=== PATIENT | male | born 1955 | race Caucasian/White ===

== ENCOUNTER 2019-12-10 14:09 | Emergency (ER) | payer BC ==
--- NOTE | 2019-12-10 16:31 | RAD REPORT ---
EXAM DESCRIPTION: CT - Stone Protocol - 12/10/2019 4:08 pm CLINICAL HISTORY: Pain COMPARISON: Abdomen Pelvis W Contrast dated 05/20/2016 TECHNIQUE: Axial 5 mm thick images were obtained without oral or IV contrast. The [id number] span s the entirety of the system including uppermost abdomen and lung bases. All CT scans are performed using dose optimization technique as appropriate and may include automated exposure control or mA/KV adjustment according to patient size. FINDINGS: No hydronephrosis is present and no obstructing ureteral calculi. No suspicious renal mass es. Isodense masses and pyelonephritis are not excluded on a stone protocol CT scan. Left kidney is s urgically absent. No suspicious mass or lymphadenopathy at the left renal surgical site. Urinary blad gabriella is mostly contracted limiting assessment. No significant adrenal finding. Liver shows a pronounced nodular contour consistent with cirrhosis. Left lobe is relatively prominent . A focal liver lesion is not seen on noncontrast imaging. The central hypodense area detailed in 201 6 is not seen on the current examination. No splenomegaly or focal splenic finding. No acute pancreatic process seen. Gallbladder is not dilate d. Wall does appear slightly thickened or edematous. No biliary tree dilatation. Calcification near t he neck of the gallbladder is believed to be outside of the gallbladder and not an acute finding. No gastric dilatation or wall thickening. No dilated large or small bowel loops. Patient does have a 3 centimeter right-sided bladder diverticulum. No mass or bulky lymphadenopathy. Patient has a large supraumbilical ventral hernia. The neck is 6 cm . Hernia contains several loops of small bowel. Hernia also contains a moderately large amount of asc ites. This increases the transverse diameter of the herniated contents to 30 cm. Several additional f at only supraumbilical ventral hernias are present superior to the dominant hernia. Patient has a rig ht inguinal hernia containing ascites that extends into the scrotum. Intraperitoneal amount of ascite s is minimal. No free air or pneumatosis. No acute bone finding. Arterial tree calcifications are present. IMPRESSION: Status post left nephrectomy. Right kidney shows no hydronephrosis, obstructing calculus or acute finding. Isodense masses and pyelonephritis are not excluded on stone protocol technique.Urinary bladder is co ntracted limiting assessment. Patient has a large supraumbilical ventral hernia significantly enlarged from 2016. Neck is 6 cm. Her jennifer contains a large amount of ascites which increases the transverse diameter to 30 cm. Herniated sm all bowel loops show no acute finding. Right inguinal hernia containing ascites. Cirrhotic liver. Multiple varices are seen in the upper abdomen. No focal liver lesion is seen.
--- NOTE | 2019-12-10 16:57 | ER ---
Nurse's Notes [facility] Name: Naif Loza Age: 63 yrs Sex: Male : 1955 Arrival Date: 12/10/2019 Time: 14:11 Bed 23 Private MD: Diagnosis: Abdominal and pelvic pain;Ventral hernia without obstruction or gangrene;Ascites Presentation: 12/10 14:33 Presenting complaint: Patient states: "I have hernias in my stomach and on my right, aj1 last night they started with steady pain, and I have this cough that's probably aggregated it" Denies N/V. Reports diarrhea. Denies fever. Transition of care: patient was not received from another setting of care. Onset of symptoms was November 2019. Risk Assessment: Do you want to hurt yourself or someone else? Patient reports no desire to harm self or others. Initial Sepsis Screen: Does the patient meet any 2 criteria? No. Patient's initial sepsis screen is negative. Does the patient have a suspected source of infection? Yes: Acute abdominal pain. Care prior to arrival: None. 14:33 Method Of Arrival: Ambulatory aj1 14:33 Acuity: VENKATESH 3 aj1 Triage Assessment: 14:35 General: Appears in no apparent distress. comfortable, Behavior is calm, cooperative, aj1 appropriate for age. Pain: Complains of pain in abdomen Pain currently is 5 out of 10 on a pain scale. at worst was 10 out of 10 on a pain scale. Neuro: Level of Consciousness is awake, alert, obeys commands. Cardiovascular: Patient's skin is warm and dry. Respiratory: Airway is patent Respiratory effort is even, unlabored, Respiratory pattern is regular, symmetrical. GI: Abdomen is distended, Reports diarrhea, Patient currently denies nausea, vomiting. Historical: - Allergies: 14:35 No Known Allergies; aj1 - Home Meds: 14:35 None [Active]; aj1 - PMHx: 14:35 Anxiety; Hernia; aj1 - PSHx: 14:35 None; aj1 - Immunization history:: Flu vaccine is not up to date. - Coronavirus screen:: The patient has NOT traveled to [place] in the past 14 days. - Social history:: Smoking status: Patient/guardian denies using tobacco. - Ebola Screening: : Patient denies travel to an Ebola-affected area in the 21 days before illness onset. Screenin:00 Abuse screen: Denies threats or abuse. Nutritional screening: No deficits noted. vc Tuberculosis screening: No symptoms or risk factors identified. Fall Risk None identified. Assessment: 16:40 General: Appears in no apparent distress. uncomfortable, Behavior is calm, cooperative, vc appropriate for age. Pain: Complains of pain in abdomen. Neuro: Level of Consciousness is awake, alert, obeys commands. Cardiovascular: Patient's skin is warm and dry. GI: Abdomen is obese, noted to have ascites. : No signs and/or symptoms were reported regarding the genitourinary system. EENT: No deficits noted. Derm: Skin temperature is warm. Musculoskeletal: Circulation, motion, and sensation intact. Range of motion: intact in all extremities. 17:00 Reassessment: Patient and/or family updated on plan of care and expected duration. Pain vc level reassessed. Patient is alert, oriented x 3, equal unlabored respirations, skin warm/dry/pink. Patient denies pain at this time. 17:25 GI: Bowel sounds present X 4 quads. Abd is soft Abdomen is tender to palpation X 4 vc quads. Vital Signs: 14:35 BP 149 / 79; Pulse 79; Resp 18; Temp 98.1; Pulse Ox 96% on R/A; Weight 86.18 kg (R); aj1 Height 5 ft. 8 in. (172.72 cm) (R); Pain 5/10; 17:00 BP 145 / 78; Pulse 80; Resp 20; Pulse Ox 97% on R/A; vc 14:35 Body Mass Index 28.89 (86.18 kg, 172.72 cm) aj1 ED Course: 14:11 Patient arrived in ED. as 14:35 Triage completed. aj1 14:35 Arm band placed on Patient placed in waiting room, Patient notified of wait time. aj1 15:34 Collette Wu FNP-C is [facility]. snw 15:35 Brian Tierney MD is Attending Physician. snw 16:00 CT Stone Protocol Sent. vc 16:37 Deepika Rangel, GONZALO is Primary Nurse. vc 17:25 Patient has correct armband on for positive identification. Bed in low position. Call vc light in reach. Side rails up X 1. 17:25 No provider procedures requiring assistance completed. Patient did not have IV access vc during this emergency room visit. Administered Medications: 17:16 Drug: Imbler 5 mg-325 mg 1 tabs Route: PO; vc 18:16 Follow up: Response: No adverse reaction; Pain is decreased vc Outcome: 16:55 Discharge ordered by MD. yuen 17:25 Discharged to home ambulatory, with family. vc 17:25 Condition: good 17:25 Discharge instructions given to patient, family, Instructed on discharge instructions, follow up and referral plans. medication usage, Demonstrated understanding of instructions, follow-up care, medications, Prescriptions given X 1. 17:28 Patient left the ED. vc Signatures: Florence Chun RN RN aj1 Collette Wu, ANIMAL PATHOLOGIST-C ANIMAL PATHOLOGIST-Csnw Lennie Samuels Vanessa, RN RN vc Corrections: (The following items were deleted from the chart) 22:06 22:05 To radiology for Stone Protocol+CT.RAD.BRZ. vc vc
--- NOTE | 2019-12-10 16:57 | EDPHYS ---
Physician Documentation [facility] Name: Naif Loza Age: 63 yrs Sex: Male : 1955 Arrival Date: 12/10/2019 Time: 14:11 Bed 23 Private MD: ED Physician Brian Tierney HPI: 12/10 17:23 This 63 yrs old Male presents to ER via Ambulatory with complaints of snw Abdominal Pain. 17:23 The patient presents with abdominal pain abdominal distention. Onset: The snw symptoms/episode began/occurred gradually, at an unknown time, and became persistent. The symptoms do not radiate. Associated signs and symptoms: Pertinent positives: known large ventral and right inguinal hernias. The symptoms are described as achy. Severity of pain: At its worst the pain was moderate. The patient has experienced similar episodes in the past. The patient has not recently seen a physician. Pt aware he needs surgery, has not had funds to have it done. Historical: - Allergies: 14:35 No Known Allergies; aj1 - Home Meds: 14:35 None [Active]; aj1 - PMHx: 14:35 Anxiety; Hernia; aj1 - PSHx: 14:35 None; aj1 - Immunization history:: Flu vaccine is not up to date. - Coronavirus screen:: The patient has NOT traveled to [place] in the past 14 days. - Social history:: Smoking status: Patient/guardian denies using tobacco. - Ebola Screening: : Patient denies travel to an Ebola-affected area in the 21 days before illness onset. ROS: 17:20 Constitutional: Negative for fever, chills, and weight loss, Eyes: Negative for injury, snw pain, redness, and discharge, ENT: Negative for injury, pain, and discharge, Neck: Negative for injury, pain, and swelling, Cardiovascular: Negative for chest pain, palpitations, and edema, Respiratory: Negative for shortness of breath, cough, wheezing, and pleuritic chest pain, Back: Negative for injury and pain, : Negative for injury, bleeding, discharge, and swelling, MS/Extremity: Negative for injury and deformity, Skin: Negative for injury, rash, and discoloration, Neuro: Negative for headache, weakness, numbness, tingling, and seizure. 17:20 Abdomen/GI: Positive for abdominal pain, abdominal distension, Negative for nausea and vomiting, diarrhea, black/tarry stool, bowel incontinence. Exam: 17:20 Constitutional: This is a well developed, well nourished patient who is awake, alert, snw and in no acute distress. Head/Face: Normocephalic, atraumatic. Eyes: Pupils equal round and reactive to light, extra-ocular motions intact. Lids and lashes normal. Conjunctiva and sclera are non-icteric and not injected. Cornea within normal limits. Periorbital areas with no swelling, redness, or edema. ENT: Nares patent. No nasal discharge, no septal abnormalities noted. Tympanic membranes are normal and external auditory canals are clear. Oropharynx with no redness, swelling, or masses, exudates, or evidence of obstruction, uvula midline. Mucous membranes moist. Neck: Trachea midline, no thyromegaly or masses palpated, and no cervical lymphadenopathy. Supple, full range of motion without nuchal rigidity, or vertebral point tenderness. No Meningismus. Chest/axilla: Normal chest wall appearance and motion. Nontender with no deformity. No lesions are appreciated. Cardiovascular: Regular rate and rhythm with a normal S1 and S2. No gallops, murmurs, or rubs. Normal PMI, no JVD. No pulse deficits. Respiratory: Lungs have equal breath sounds bilaterally, clear to auscultation and percussion. No rales, rhonchi or wheezes noted. No increased work of breathing, no retractions or nasal flaring. 17:20 Back: No spinal tenderness. No costovertebral tenderness. Full range of motion. Skin: Warm, dry with normal turgor. Normal color with no rashes, no lesions, and no evidence of cellulitis. MS/ Extremity: Pulses equal, no cyanosis. Neurovascular intact. Full, normal range of motion. Neuro: Awake and alert, GCS 15, oriented to person, place, time, and situation. Cranial nerves II-XII grossly intact. Motor strength 5/5 in all extremities. Sensory grossly intact. Cerebellar exam normal. Normal gait. Psych: Awake, alert, with orientation to person, place and time. Behavior, mood, and affect are within normal limits. 17:20 Abdomen/GI: Inspection: very large ventral hernia, soft and pliable abdomen with obvious distension, bowel sounds normal, Bowel sounds: normal, Palpation: abdomen is soft and non-tender. Vital Signs: 14:35 BP 149 / 79; Pulse 79; Resp 18; Temp 98.1; Pulse Ox 96% on R/A; Weight 86.18 kg (R); aj1 Height 5 ft. 8 in. (172.72 cm) (R); Pain 5/10; 17:00 BP 145 / 78; Pulse 80; Resp 20; Pulse Ox 97% on R/A; vc 14:35 Body Mass Index 28.89 (86.18 kg, 172.72 cm) aj1 MDM: 16:18 Patient medically screened. snw 17:22 Data reviewed: vital signs, nurses notes. Data interpreted: Pulse oximetry: on room air snw is 96 %. Interpretation: acceptable. Counseling: I had a detailed discussion with the patient and/or guardian regarding: the historical points, exam findings, and any diagnostic results supporting the discharge/admit diagnosis, radiology results, the need for outpatient follow up, to return to the emergency department if symptoms worsen or persist or if there are any questions or concerns that arise at home. Special discussion: Based on the patient's Hx, exam, and Dx evaluation, there is no indication for emergent surgery or inpatient Tx. It is understood by the patient/guardian that if the Sx's persist or worsen they need to return immediately for re-evaluation. Based on the history and exam findings, there is no indication for further emergent testing or inpatient evaluation. I discussed with the patient/guardian the need to see the technology training associate for further evaluation of the symptoms. I discussed with the patient/guardian the need to see the general surgeon for further evaluation of the symptoms. I discussed with the patient/guardian the need to see the primary care provider for further evaluation of the symptoms. ED course: Pt was an alcoholic, states he only drinks a few beers on the weekends now. CT evidence of cirrhosis, + ascites to abdomen and scrotum. 12/10 15:18 Order name: CT Stone Protocol aj1 Administered Medications: 17:16 Drug: [place] 5 mg-325 mg 1 tabs Route: PO; vc 18:16 Follow up: Response: No adverse reaction; Pain is decreased vc Disposition: 17:54 Co-signature as Attending Physician, Brian Tierney MD. rn Disposition: 12/10/19 16:55 Discharged to Home. Impression: Abdominal and pelvic pain, Ventral hernia without obstruction or gangrene, Ascites. - Condition is Stable. - Discharge Instructions: Abdominal Pain, Adult, Hernia, Adult, Ventral Hernia. - Prescriptions for Bentyl 20 mg Oral Tablet - take 1 tablet by ORAL route every 6 hours As needed; 20 tablet. - Medication Reconciliation Form, Thank You Letter, Antibiotic Education, Prescription Opioid Use form. - Follow up: Emergency Department; When: As needed; Reason: Worsening of condition. Follow up: Private Physician; When: 2 - 3 days; Reason: Recheck today's complaints, Continuance of care, Re-evaluation by your physician. - Notes: Continue use of abdominal binder Signatures: Dispatcher [employer] EDMS Florence Chun RN RN aj1 Collette Wu, GILLIAN-C EXTRUSION BENDER-Csnw Brian Tierney MD MD rn Calcote, Vanessa, RN RN vc Corrections: (The following items were deleted from the chart) 17:28 16:55 12/10/2019 16:55 Discharged to Home. Impression: Abdominal and pelvic pain; vc Ventral hernia without obstruction or gangrene; Ascites. Condition is Stable. Forms are Medication Reconciliation Form, Thank You Letter, Antibiotic Education, Prescription Opioid Use. Follow up: Emergency Department; When: As needed; Reason: Worsening of condition. Follow up: Private Physician; When: 2 - 3 days; Reason: Recheck today's complaints, Continuance of care, Re-evaluation by your physician. snw
[2019-12-10] MEDS ORDERED: HYDROCODONE/APAP 5/325 MG TAB ONE (17:07)
[2019-12-10 18:05] VITALS: BP 149/79; TEMP 98.1; O2SAT 96
== END 2019-12-10 17:28 | disposition home or self-care (01) ==
LOC: ER 14:09
DX: R10.2 Pelvic and perineal pain (principal); K43.9 Ventral hernia without obstruction or gangrene; R18.8 Other ascites
CPT/HCPCS: 74176; 76377; 99283

== ENCOUNTER 2020-09-03 13:07 | Emergency (ER) | payer BC ==
[2020-09-03] MEDS ORDERED: MORPHINE 4 MG/ML SYR ONE (15:33)
[2020-09-03] MEDS ORDERED: ONDANSETRON 4 MG (ODT) TAB ONE (15:34)
[2020-09-03 16:21] LABS: Urine Bacteria <20 /HPF (NONE SEEN); Urine Culture Reflex Order REFLEXED; Urine Mucus 2+ /HPF (NONE SEEN); Urine RBC <5 /HPF (NONE SEEN)
[2020-09-03 16:22] LABS: Urine Blood NEGATIVE (NEG); Urine Glucose NEGATIVE (NEG); Urine Protein TRACE (NEG); Urine Specific Gravity 1.025 (1.005-1.030)
--- NOTE | 2020-09-03 16:29 | ER ---
Nurse's Notes [facility] Name: Naif Loza Age: 64 yrs Sex: Male : 1955 Arrival Date: 09/03/2020 Time: 13:17 Bed 8 Private MD: Diagnosis: Inguinal hernia;Ventral hernia without obstruction or gangrene;Urinary tract infection, site not specified Presentation: 09/03 13:25 Coronavirus screen: Client denies travel out of the [place] in the last 14 days. At this ll1 time, the client does not indicate any symptoms associated with coronavirus-19. Ebola Screen: Patient denies travel to an Ebola-affected area in the 21 days before illness onset. Initial Sepsis Screen: Does the patient meet any 2 criteria? No. Patient's initial sepsis screen is negative. Does the patient have a suspected source of infection? Yes: Acute abdominal pain. Risk Assessment: Do you want to hurt yourself or someone else? Patient reports no desire to harm self or others. Onset of symptoms was August 02, 2020. 13:25 Method Of Arrival: Ambulatory ll1 13:25 Acuity: VENKATESH 2 ll1 13:26 Chief complaint: Patient states: Testicular swelling for 1 month. Can usually get the ll1 swelling down with rest and elevation, not working this time. Abdominal hernias have gotten more painful the past month. Noticed bruising to both sides of abdomen recently. Historical: - Allergies: 13:25 No Known Allergies; ll1 - PMHx: 13:25 Hernia; Anxiety; ll1 - PSHx: 13:25 kidney CA with removal; Hernia repair; ll1 - Immunization history:: Flu vaccine is not up to date. - Social history:: Smoking status: Patient denies any tobacco usage or history of. Screenin:30 Abuse screen: Denies threats or abuse. Nutritional screening: No deficits noted. vg1 Tuberculosis screening: No symptoms or risk factors identified. Fall Risk No fall in past 12 months (0 pts). No secondary diagnosis (0 pts). No IV (0 pts). Ambulatory Aid- None/Bed Rest/Nurse Assist (0 pts). Gait- Normal/Bed Rest/Wheelchair (0 pts) Mental Status- Oriented to own ability (0 pts). Total Casiano Fall Scale indicates No Risk (0-24 pts). Assessment: 15:20 General: Appears in no apparent distress. Behavior is calm, cooperative. Pain: vg1 Complains of pain in Right testicle Pain currently is 10 out of 10 on a pain scale. Quality of pain is described as tender, Pain began 'about a week ago'. Is continuous. Neuro: Level of Consciousness is awake, alert, obeys commands, Oriented to person, place, time, situation. Cardiovascular: Patient's skin is warm and dry. Respiratory: Airway is patent Respiratory effort is even, unlabored, Respiratory pattern is regular, symmetrical. GI: Patient currently denies diarrhea, nausea, vomiting, Patient has multiple abd hernias. Pt stated "I had Left Kidney and part of colon removed in 2006". : Reports "slight pain and burning with urination". EENT: No signs and/or symptoms were reported regarding the EENT system. Derm: Skin is pink, warm \\T\\ dry. Musculoskeletal: Range of motion: intact in all extremities. 16:20 Reassessment: Patient appears in no apparent distress at this time. Patient and/or vg1 family updated on plan of care and expected duration. Pain level reassessed. Patient is alert, oriented x 3, equal unlabored respirations, skin warm/dry/pink. Vital Signs: 13:25 BP 138 / 72; Pulse 85; Resp 19; Temp 98.1; Pulse Ox 95% on R/A; Weight 86.18 kg; Height ll1 5 ft. 9 in. (175.26 cm); Pain 10/10; 15:30 BP 127 / 79; Pulse 83; Resp 16; Pulse Ox 100% ; sv 16:00 BP 141 / 76; Pulse 76; Resp 14; Pulse Ox 96% on R/A; vg1 16:16 Pain 4/10; vg1 16:30 BP 142 / 76; Pulse 80; Resp 14; Pulse Ox 98% on R/A; vg1 13:25 Body Mass Index 28.06 (86.18 kg, 175.26 cm) ll1 ED Course: 13:17 Patient arrived in ED. ds1 13:24 Arm band placed on. ll1 13:26 Triage completed. ll1 14:41 Kieran Pacheco NP is PHCP. pm1 14:41 Brian Tierney MD is Attending Physician. pm1 15:11 Ingrid Reyna, RN is Primary Nurse. vg1 15:20 Patient has correct armband on for positive identification. Placed in gown. Bed in low vg1 position. Call light in reach. Side rails up X 1. Pulse ox on. NIBP on. 16:10 Urine collected: clean catch specimen, marietta colored. vg1 16:46 No provider procedures requiring assistance completed. Patient did not have IV access vg1 during this emergency room visit. Administered Medications: 15:30 Drug: morphine 4 mg {Note: RASS 0.} Route: IM; Site: right deltoid; vg1 16:16 Follow up: Pain 4/10 Adult; Response: No adverse reaction; Pain is decreased; RASS: vg1 Alert and Calm (0) 15:30 Drug: Ondansetron (Zofran) 4 mg Route: PO; vg1 16:16 Follow up: Response: No adverse reaction vg1 Outcome: 16:28 Discharge ordered by MD. pm1 16:47 Discharged to home ambulatory, with family. vg1 16:47 Condition: stable 16:47 Discharge instructions given to patient, Instructed on discharge instructions, follow up and referral plans. medication usage, Demonstrated understanding of instructions, Prescriptions given X 2. 16:47 Patient left the ED. vg1 Signatures: Judith Abernathy RN RN Sol Mcneal ds1 Kieran Pacheco, YEE TECHNICAL PLANNER pm1 Ingrid Reyna RN RN vg1 Rafi Kinsey RN RN ll1 Corrections: (The following items were deleted from the chart) 16:04 15:20 GI: Patient currently denies diarrhea, nausea, vomiting, vg1 vg1
--- NOTE | 2020-09-03 16:29 | EDPHYS ---
Physician Documentation [facility] Name: Naif Loza Age: 64 yrs Sex: Male : 1955 Arrival Date: 09/03/2020 Time: 13:17 Bed 8 Private MD: ED Physician Brian Tierney HPI: 09/03 15:17 This 64 yrs old Male presents to ER via Ambulatory with complaints of pm1 Testicular Swelling. 15:17 The patient presents with swelling, of the right inguinal area. pm1 15:17 Onset: The symptoms/episode began/occurred 1 month(s) ago. Modifying factors: The pm1 symptoms are alleviated by nothing, the symptoms are aggravated by nothing. Associated signs and symptoms: Pertinent positives: dysuria, Pertinent negatives: constipation, diarrhea, fever, nausea, vomiting. Severity of symptoms: in the emergency department the symptoms are actually worse. The patient has experienced similar episodes in the past, chronically. The patient has been recently seen by a physician: GI and has appointment with internal medicine in 1 week. Historical: - Allergies: 13:25 No Known Allergies; ll1 - PMHx: 13:25 Hernia; Anxiety; ll1 - PSHx: 13:25 kidney CA with removal; Hernia repair; ll1 - Immunization history:: Flu vaccine is not up to date. - Social history:: Smoking status: Patient denies any tobacco usage or history of. ROS: 15:17 Constitutional: Negative for fever, chills, and weight loss, Cardiovascular: Negative pm1 for chest pain, palpitations, and edema, Respiratory: Negative for shortness of breath, cough, wheezing, and pleuritic chest pain. 15:17 Back: Negative for injury and pain. 15:17 MS/Extremity: Negative for injury and deformity, Skin: Negative for injury, rash, and discoloration, Neuro: Negative for headache, weakness, numbness, tingling, and seizure. 15:17 Abdomen/GI: Negative for abdominal pain, nausea, vomiting, and diarrhea, constipation. 15:17 : Positive for burning with urination, right inguinal testicular swelling, Negative for flank pain. Exam: 15:17 Constitutional: This is a well developed, well nourished patient who is awake, alert, pm1 and in no acute distress. Head/Face: Normocephalic, atraumatic. 15:17 Back: No spinal tenderness. No costovertebral tenderness. Full range of motion. Skin: Warm, dry with normal turgor. Normal color with no rashes, no lesions, and no evidence of cellulitis. MS/ Extremity: Pulses equal, no cyanosis. Neurovascular intact. Full, normal range of motion. 15:17 Cardiovascular: Exam negative for acute changes, Rate: normal, Rhythm: regular, Pulses: no pulse deficits are appreciated. 15:17 Respiratory: Exam negative for acute changes, respiratory distress, shortness of breath. 15:17 Abdomen/GI: Inspection: obese Hernia: Large right inguinal hernia, 2 large ventral hernia. 15:17 Neuro: Exam negative for acute changes, Orientation: is normal, Motor: is normal, Sensation: is normal, no obvious gross deficits. Vital Signs: 13:25 BP 138 / 72; Pulse 85; Resp 19; Temp 98.1; Pulse Ox 95% on R/A; Weight 86.18 kg; Height ll1 5 ft. 9 in. (175.26 cm); Pain 10/10; 15:30 BP 127 / 79; Pulse 83; Resp 16; Pulse Ox 100% ; sv 16:00 BP 141 / 76; Pulse 76; Resp 14; Pulse Ox 96% on R/A; vg1 16:16 Pain 4/10; vg1 16:30 BP 142 / 76; Pulse 80; Resp 14; Pulse Ox 98% on R/A; vg1 13:25 Body Mass Index 28.06 (86.18 kg, 175.26 cm) ll1 MDM: 14:42 Patient medically screened. pm1 15:17 Data reviewed: vital signs. Data interpreted: Pulse oximetry: on room air is 95 %. pm1 Interpretation: normal. 15:17 ED course: Patient has had large hernias to abdomen and scrotal area for years. pm1 Discussed with the patient the need to follow up with the surgeon that is planning to repair his hernias. The surgeon wanted clearance from GI prior to surgery due to his liver cirrhosis. He has had an EGD recently and has appointment with Internal Medicine on Thursday. He came to the ER because he is having problems dealing with the pain. 15:17 ED course: Explained that imaging in the ER will not change disposition for follow up pm1 with the surgeon since the hernias are so large that the defect are large also and no incarceration is present. Patient and daughter understand that he needs to follow up for clearance to get his hernia surgery. I will address his pain here and give hi a prescription for pain medication. 16:28 Counseling: I had a detailed discussion with the patient and/or guardian regarding: the pm1 historical points, exam findings, and any diagnostic results supporting the discharge/admit diagnosis, lab results, the need for outpatient follow up, a general surgeon, to return to the emergency department if symptoms worsen or persist or if there are any questions or concerns that arise at home. 09/03 15:06 Order name: Urine Microscopic Only; Complete Time: 16:27 pm1 09/03 16:13 Order name: Urine Dipstick--Ancillary (enter results); Complete Time: 16:27 bd 09/03 15:06 Order name: Urine Dipstick-Ancillary (obtain specimen); Complete Time: 16:12 pm1 09/03 16:23 Order name: Urine Culture EDMS Administered Medications: 15:30 Drug: morphine 4 mg {Note: RASS 0.} Route: IM; Site: right deltoid; vg1 16:16 Follow up: Pain 4/10 Adult; Response: No adverse reaction; Pain is decreased; RASS: vg1 Alert and Calm (0) 15:30 Drug: Ondansetron (Zofran) 4 mg Route: PO; vg1 16:16 Follow up: Response: No adverse reaction vg1 Disposition: 18:59 Co-signature as Attending Physician, Brian Tierney MD. rn Disposition: 09/03/20 16:28 Discharged to Home. Impression: Inguinal hernia, Ventral hernia without obstruction or gangrene, Urinary tract infection, site not specified. - Condition is Stable. - Discharge Instructions: Urinary Tract Infection, Adult, Inguinal Hernia, Adult, Ventral Hernia. - Prescriptions for Tramadol 50 mg Oral Tablet - take 1 tablet by ORAL route every 8 hours as needed; 12 tablet. Bactrim DS 800- 160 mg Oral Tablet - take 1 tablet by ORAL route every 12 hours for 10 days; 20 tablet. - Medication Reconciliation Form, Thank You Letter, Antibiotic Education, Prescription Opioid Use form. - Work release form (09/03/20 16:50). vg1 - Follow up: Emergency Department; When: As needed; Reason: Worsening of condition. Follow up: Private Physician; When: 2 - 3 days; Reason: Recheck today's complaints, Continuance of care, Re-evaluation by your physician. - Problem is new. - Symptoms have improved. Signatures: Dispatcher [employer] EDMS Brian Tierney MD MD rn Marinas, Patrick MEDICAL PARASITOLOGIST MEDICAL PARASITOLOGIST pm1 Ingrid Reyna RN RN vg1 Rafi Kinsey RN RN ll1 Corrections: (The following items were deleted from the chart) 15:18 15:17 Counseling: I had a detailed discussion with the patient and/or guardian pm1 regarding: pm1 16:47 16:28 09/03/2020 16:28 Discharged to Home. Impression: Inguinal hernia; Ventral hernia vg1 without obstruction or gangrene; Urinary tract infection, site not specified. Condition is Stable. Discharge Instructions: Inguinal Hernia, Adult, Ventral Hernia. Prescriptions for Tramadol 50 mg Oral Tablet - take 1 tablet by ORAL route every 8 hours as needed; 12 tablet. and Forms are Medication Reconciliation Form, Thank You Letter, Antibiotic Education, Prescription Opioid Use. Follow up: Emergency Department; When: As needed; Reason: Worsening of condition. Follow up: Private Physician; When: 2 - 3 days; Reason: Recheck today's complaints, Continuance of care, Re-evaluation by your physician. Problem is new. Symptoms have improved. pm1 17:49 15:17 ED course: Patient has had large hernias to abdomen and scrotal area for years. pm1 Discussed with the patient the need to follow up with the surgeon that is planning to repair his hernias. The surgeon wanted clearance from GI prior to surgery due to his liver cirrhosis. He has had an EGD recently and has appointment with GI on Thursday. He came to the ER because he is having problems dealing with the pain. pm1
[2020-09-03 20:53] VITALS: TEMP 98.1
[2020-09-03 20:59] VITALS: BP 142/76; O2SAT 98
== END 2020-09-03 16:47 | disposition home or self-care (01) ==
LOC: ER 13:07
DX: N39.0 Urinary tract infection, site not specified (principal); K40.90 Unilateral inguinal hernia, without obstruction or gangrene, not specified as recurrent; K43.9 Ventral hernia without obstruction or gangrene; Z85.528 Personal history of other malignant neoplasm of kidney
CPT/HCPCS: 81003; 81015; 87086; 87088; 96372; 99284

== ENCOUNTER 2021-04-03 09:06 | Inpatient (IN) | payer BC, SELFPAY ==
--- OUTSIDE RECORDS SUMMARY | 2021-04-03 09:08 | XMS REPORT | Continuity of Care Document ---
:1955 Author Organization [facility] t Address [address] [place] [address] Care Team Providers Name Role Phone Unavailable Unavailable Unavailable Problems This patient has no known problems. Allergies, Adverse Reactions, Alerts This patient has no known allergies or adverse reactions. Medications This patient has no known medications. Procedures This patient has no known procedures. Encounters Start End Encounter Admission Attending Care Care Encounter Source Date/Time Date/Time Type Type Clinicians Facility Department ID 2021-01-07 2021-01-07 Outpatient [id number] 09:00:00 09:00:00 2020-10-22 2020-10-22 Outpatient [id number] [facility] 12:51:00 12:51:00 2020-10-15 2020-10-15 Outpatient [id number] [facility] 10:51:00 10:51:00 2020-09-24 2020-09-24 Emergency E [id number] [facility] 15:26:00 15:26:00 Results This patient has no known results.
[2021-04-03 09:50] LABS: Absolute Lymphocytes (CBC) 1.3 K/uL (0.7-4.9); Basophils % 0.3 % (0-1.3); Lymphocytes % 11.9 % (15.3-44.8); MPV 7.5 fL (7.6-11.3); RBC Red Blood Cell Count 3.93 M/uL (4.33-5.43)
[2021-04-03] MEDS ORDERED: ONDANSETRON 4 MG/2 ML VIAL ONE (10:06)
[2021-04-03] MEDS ORDERED: MORPHINE 4 MG/ML SYR ONE (10:06)
[2021-04-03 10:14] LABS: Albumin 2.8 g/dL (3.4-5.0); Bilirubin Direct 0.7 mg/dL (0-0.2); Bilirubin Total 1.4 mg/dL (0.2-1.0); Potassium 4.5 mmol/L (3.5-5.1); Protein, Total 7.2 g/dL (6.4-8.2)
--- NOTE | 2021-04-03 10:51 | RAD REPORT ---
EXAM DESCRIPTION: CT - Abdomen Pelvis W Contrast - 04/03/2021 10:28 am CLINICAL HISTORY: Abdominal pain COMPARISON: 2019 TECHNIQUE: Computed axial tomography of the abdomen pelvis was obtained. 75 cc Isovue-300 was admini stered intravenously. Oral contrast was not requested which limits evaluation of bowel. All CT scans are performed using dose optimization technique as appropriate and may include automated exposure control or mA/KV adjustment according to patient size. FINDINGS: Cirrhotic liver. It contains low density areas with retraction of the hepatic capsule. Por maria luisa vein is patent. Soft gel and abdominal varices. Mild splenomegaly. The pancreas and adrenals are unremarkable Left nephrectomy Right kidney unremarkable. No evidence of diverticulitis. Multiple ventral hernias. The largest contains bowel and has a neck 4.5 centimeters. Jejunum and port ion of the ileum are mildly dilated. More distal ileum is decompressed. A small to moderate amount of ascites within the abdomen and pelvis. A large amount of ascites extend s into a right ventral hernia Bladder diverticulum. IMPRESSION: Cirrhosis. Low-density areas within the liver with retraction of the capsule probably fi brosis. Neoplasm although possible is probably less likely. MRI recommended. Small bowel obstruction. The site of obstruction maybe the ventral hernia. Large ventral hernia containing bowel Right ventral hernia containing a large amount of ascites
[2021-04-03] MEDS ORDERED: ACETAMINOPHEN 500 MG TAB PO PRN (13:32)
[2021-04-03] MEDS ORDERED: ONDANSETRON 4 MG/2 ML VIAL IV PRN (13:32)
[2021-04-03] MEDS ORDERED: Levofloxacin500mg IV 500 MG/100 ML BAG IV SCH (13:32)
--- NOTE | 2021-04-03 14:37 | RAD REPORT ---
EXAM DESCRIPTION: RAD - Abdomen Acute Series - 04/03/2021 2:28 pm CLINICAL HISTORY: SBO FINDINGS: Multiple mildly prominent small bowel loops throughout the abdomen appear unchanged since comparative study compatible with a mild to moderate mechanical obstruction. No pneumoperitoneum seen . IMPRESSION: Stable findings of SBO since CT examination earlier same date.
--- NOTE | 2021-04-03 15:53 | ER ---
Nurse's Notes [facility] Name: Naif Loza Age: 65 yrs Sex: Male : 1955 Arrival Date: 04/03/2021 Time: 09:08 Bed 14 Private MD: Diagnosis: Small Bowel Obstruction, Abdominal Pain, Ascites, Cirrhosis Presentation: 04/03 09:16 Chief complaint: Patient states: abd pain since Thursday , has hx of cirrhosis and hernia iw , also has been vomiting. Coronavirus screen: Client presents with at least one sign or symptom that may indicate coronavirus-19. Ebola Screen: Patient negative for fever greater than or equal to 101.5 degrees Fahrenheit, and additional compatible Ebola Virus Disease symptoms Patient denies exposure to infectious person. Patient denies travel to an Ebola-affected area in the 21 days before illness onset. No symptoms or risks identified at this time. Initial Sepsis Screen: Does the patient meet any 2 criteria? No. Patient's initial sepsis screen is negative. Does the patient have a suspected source of infection? No. Patient's initial sepsis screen is negative. Risk Assessment: Do you want to hurt yourself or someone else? Patient reports no desire to harm self or others. Onset of symptoms was March 31, 2021. 09:16 Method Of Arrival: Ambulatory iw 09:16 Acuity: VENKATESH 3 iw Historical: - Allergies: 09:19 No Known Allergies; iw - Home Meds: :19 lactulose 10 gram/15 mL Oral soln 15 mL twice a day [Active]; trazodone 100 mg Oral tab iw nightly [Active]; spironolactone 100 mg Oral tab 1 tab once daily [Active]; - PMHx: 09:19 Anxiety; Hernia; Cirrhosis; iw - PSHx: 09:19 kidney CA with removal; Hernia repair; iw - Immunization history:: Client reports receiving the 2nd dose of the Covid vaccine. - Social history:: Smoking status: Patient/guardian denies using tobacco, but has a distant history of tobacco abuse. Screenin:21 Abuse screen: Denies threats or abuse. Nutritional screening: No deficits noted. tw2 Tuberculosis screening: No symptoms or risk factors identified. Fall Risk None identified. Assessment: 09:21 General: Appears in no apparent distress. well groomed, Behavior is calm, cooperative, tw2 appropriate for age. Pain: Complains of pain in abdomen. Neuro: Level of Consciousness is awake, alert, obeys commands, Oriented to person, place, time, situation. Cardiovascular: Capillary refill < 3 seconds. Respiratory: Airway is patent Respiratory effort is even, unlabored, Respiratory pattern is regular, symmetrical. GI: Abdomen is round distended, Bowel sounds present X 4 quads. Mass noted in right upper quadrant and left upper quadrant. GI: Reports lower abdominal pain, upper abdominal pain, nausea. : No signs and/or symptoms were reported regarding the genitourinary system. EENT: No signs and/or symptoms were reported regarding the EENT system. Derm: No signs and/or symptoms reported regarding the dermatologic system. Musculoskeletal: Range of motion: intact in all extremities. 10:20 Reassessment: Patient appears in no apparent distress at this time. No changes from tw2 previously documented assessment. Patient and/or family updated on plan of care and expected duration. Pain level reassessed. Patient is alert, oriented x 3, equal unlabored respirations, skin warm/dry/pink. 11:15 Reassessment: Patient appears in no apparent distress at this time. No changes from tw2 previously documented assessment. Patient and/or family updated on plan of care and expected duration. Pain level reassessed. Patient is alert, oriented x 3, equal unlabored respirations, skin warm/dry/pink. 12:07 Reassessment: Patient appears in no apparent distress at this time. No changes from tw2 previously documented assessment. Patient and/or family updated on plan of care and expected duration. Pain level reassessed. Patient is alert, oriented x 3, equal unlabored respirations, skin warm/dry/pink. 13:10 Reassessment: Patient appears in no apparent distress at this time. No changes from tw2 previously documented assessment. Patient and/or family updated on plan of care and expected duration. Pain level reassessed. Patient is alert, oriented x 3, equal unlabored respirations, skin warm/dry/pink. 14:35 Reassessment: pt back from imaging at this time, nad, pt still "unclear if they are tw2 keeping me or if i go back to the other doctor in [place]", provider Dr. Davis notified that pt and pts stepmother need clarification on the plan as to admission. 15:40 Reassessment: Patient appears in no apparent distress at this time. No changes from tw2 previously documented assessment. Patient and/or family updated on plan of care and expected duration. Pain level reassessed. Patient is alert, oriented x 3, equal unlabored respirations, skin warm/dry/pink. Vital Signs: 09:16 BP 125 / 66; Pulse 92; Resp 18; Temp 98.6; Pulse Ox 95% on R/A; Weight 86.18 kg; Height iw 5 ft. 8 in. (172.72 cm); Pain 10/10; 10:18 BP 109 / 61; Pulse 78; Resp 17; Pulse Ox 95% on R/A; tw2 11:15 BP 113 / 59; Pulse 81; Resp 17; Pulse Ox 95% on R/A; tw2 12:07 BP 110 / 64; Pulse 78; Resp 17; Pulse Ox 95% on R/A; tw2 13:10 BP 117 / 67; Pulse 82; Resp 17; Pulse Ox 95% on R/A; tw2 14:36 BP 132 / 67; Pulse 81; Resp 17; Pulse Ox 99% on R/A; tw2 15:41 BP 112 / 62; Pulse 75; Resp 17; Pulse Ox 99% on R/A; tw2 09:16 Body Mass Index 28.89 (86.18 kg, 172.72 cm) iw ED Course: 09:08 Patient arrived in ED. as 09:18 Triage completed. iw 09:20 Thelma Cline, RN is Primary Nurse. tw2 09:21 Bed in low position. Call light in reach. Adult w/ patient. Pulse ox on. NIBP on. tw2 09:24 Quinton Davis MD is Attending Physician. kdr 09:35 CT Abd/Pelvis - IV Contrast Only In Process Unspecified. EDMS 09:40 Inserted saline lock: 22 gauge in left antecubital area, using aseptic technique. Blood tw2 collected. 14:27 Abdomen Acute Series In Process Unspecified. EDMS 14:28 X-ray completed. Patient tolerated procedure well. Patient moved back from radiology. ml 15:51 Kamaljit Esquivel MD is Hospitalizing Provider. kdr 16:20 No provider procedures requiring assistance completed. Patient admitted, IV remains in tw2 place. Administered Medications: 09:54 Drug: Zofran (Ondansetron) 4 mg Route: IVP; Site: left antecubital; tw2 14:09 Follow up: Response: No adverse reaction tw2 09:56 Drug: morphine 4 mg {Note: RASS 0.} Route: IVP; Site: left antecubital; tw2 10:50 Follow up: Response: No adverse reaction; Pain is decreased; RASS: Alert and Calm (0) tw2 Outcome: 15:52 Decision to Hospitalize by Provider. kdr 16:20 Admitted to Med/surg accompanied by tech, via stretcher, room 214, with chart, Report tw2 called to GONZALO Moreno 16:20 Condition: stable 16:20 Instructed on the need for admit. 16:37 Patient left the ED. tw2 Signatures: Dispatcher [employer] EDMS Quinton Davis MD MD kdr Martinez, Amelia as Williams, Irene, Joy Armando RN, Tara, RN RN tw2
--- NOTE | 2021-04-03 15:53 | EDPHYS ---
Physician Documentation [facility] Name: Naif Loza Age: 65 yrs Sex: Male : 1955 Arrival Date: 04/03/2021 Time: 09:08 Bed 14 Private MD: ED Physician Quinton Davis HPI: 04/03 17:20 This 65 yrs old Male presents to ER via Ambulatory with complaints of kdr Abdominal Pain. 17:20 The patient presents with abdominal pain in the lower abdomen. Onset: The kdr symptoms/episode began/occurred gradually, 1 week(s) ago. The symptoms do not radiate. Associated signs and symptoms: Pertinent positives: nausea and vomiting, diarrhea, Pertinent negatives: chest pain, fever, headache, palpitations, shortness of breath, testicular pain. The symptoms are described as achy, intermittent, sharp, vague, waxing/waning. Modifying factors: The symptoms are alleviated by nothing, the symptoms are aggravated by movement, touching the area, walking. Severity of pain: At its worst the pain was mild in the emergency department the pain is unchanged. The patient has experienced similar episodes in the past, a few times. The patient has not recently seen a physician. Historical: - Allergies: 09:19 No Known Allergies; iw - Home Meds: 09:19 lactulose 10 gram/15 mL Oral soln 15 mL twice a day [Active]; trazodone 100 mg Oral tab iw nightly [Active]; spironolactone 100 mg Oral tab 1 tab once daily [Active]; - PMHx: 09:19 Anxiety; Hernia; Cirrhosis; iw - PSHx: 09:19 kidney CA with removal; Hernia repair; iw - Immunization history:: Client reports receiving the 2nd dose of the Covid vaccine. - Social history:: Smoking status: Patient/guardian denies using tobacco, but has a distant history of tobacco abuse. ROS: 17:20 Constitutional: Negative for fever, chills, and weight loss, Eyes: Negative for injury, kdr pain, redness, and discharge, ENT: Negative for injury, pain, and discharge, Neck: Negative for injury, pain, and swelling, Cardiovascular: Negative for chest pain, palpitations, and edema, Respiratory: Negative for shortness of breath, cough, wheezing, and pleuritic chest pain, Back: Negative for injury and pain, : Negative for injury, bleeding, discharge, and swelling, MS/Extremity: Negative for injury and deformity, Skin: Negative for injury, rash, and discoloration, Neuro: Negative for headache, weakness, numbness, tingling, and seizure activity. Psych: Negative for depression, anxiety, suicide ideation, homicidal ideation, and hallucinations, Allergy/Immunology: Negative for hives, rash, and allergies, Endocrine: Negative for neck swelling, polydipsia, polyuria, polyphagia, and marked weight changes, Hematologic/Lymphatic: Negative for swollen nodes, abnormal bleeding, and unusual bruising. 17:20 Abdomen/GI: Positive for abdominal pain, nausea and vomiting, diarrhea, abdominal cramps, abdominal distension, The patient has a history of chronic bilateral ventral hernias. The left hernia has been hurting more than the right. He has had pain like this before and continues to pass gas and loose stool rectally. Exam: 17:20 Constitutional: This is a well developed, well nourished patient who is awake, alert, kdr and in no acute distress. Head/Face: Normocephalic, atraumatic. Eyes: Pupils equal round and reactive to light, extra-ocular motions intact. Lids and lashes normal. Conjunctiva and sclera are non-icteric and not injected. Cornea within normal limits. Periorbital areas with no swelling, redness, or edema. Neck: Trachea midline, no thyromegaly or masses palpated, and no cervical lymphadenopathy. Supple, full range of motion without nuchal rigidity, or vertebral point tenderness. No Meningismus. Chest/axilla: Normal chest wall appearance and motion. Nontender with no deformity. No lesions are appreciated. Cardiovascular: Regular rate and rhythm with a normal S1 and S2. No gallops, murmurs, or rubs. Normal PMI, no JVD. No pulse deficits. Respiratory: Lungs have equal breath sounds bilaterally, clear to auscultation and percussion. No rales, rhonchi or wheezes noted. No increased work of breathing, no retractions or nasal flaring. Back: No spinal tenderness. No costovertebral tenderness. Full range of motion. Skin: Warm, dry with normal turgor. Normal color with no rashes, no lesions, and no evidence of cellulitis. MS/ Extremity: Pulses equal, no cyanosis. Neurovascular intact. Full, normal range of motion. Neuro: Awake and alert, GCS 15, oriented to person, place, time, and situation. Cranial nerves II-XII grossly intact. Motor strength 5/5 in all extremities. Sensory grossly intact. Cerebellar exam normal. Normal gait. Psych: Awake, alert, with orientation to person, place and time. Behavior, mood, and affect are within normal limits. 17:20 Abdomen/GI: Inspection: distension, that is moderate, in the right lower quadrant and left lower quadrant, Bowel sounds: active, all quadrants, Palpation: soft, mild abdominal tenderness, in the right lower quadrant and left lower quadrant. Vital Signs: 09:16 BP 125 / 66; Pulse 92; Resp 18; Temp 98.6; Pulse Ox 95% on R/A; Weight 86.18 kg; Height iw 5 ft. 8 in. (172.72 cm); Pain 10/10; 10:18 BP 109 / 61; Pulse 78; Resp 17; Pulse Ox 95% on R/A; tw2 11:15 BP 113 / 59; Pulse 81; Resp 17; Pulse Ox 95% on R/A; tw2 12:07 BP 110 / 64; Pulse 78; Resp 17; Pulse Ox 95% on R/A; tw2 13:10 BP 117 / 67; Pulse 82; Resp 17; Pulse Ox 95% on R/A; tw2 14:36 BP 132 / 67; Pulse 81; Resp 17; Pulse Ox 99% on R/A; tw2 15:41 BP 112 / 62; Pulse 75; Resp 17; Pulse Ox 99% on R/A; tw2 09:16 Body Mass Index 28.89 (86.18 kg, 172.72 cm) iw MDM: 15:52 Patient medically screened. kdr 17:20 Data reviewed: vital signs, nurses notes, lab test result(s), radiologic studies. kdr Counseling: I had a detailed discussion with the patient and/or guardian regarding: the historical points, exam findings, and any diagnostic results supporting the discharge/admit diagnosis, lab results, radiology results, the need for further work-up and treatment in the hospital. Medication response: morphine partially relieved the patient's pain. Physician consultation: Patrick Lunsford MD regarding consult, patient's condition, need to evaluate the patient as soon as possible, and will see patient in ED, shortly. 04/03 09:25 Order name: Basic Metabolic Panel; Complete Time: 11:10 [facility] 04/03 09:25 Order name: CBC with Diff; Complete Time: 11:10 [facility] 04/03 09:25 Order name: Hepatic Function; Complete Time: 11:10 [facility] 04/03 09:25 Order name: Lipase; Complete Time: 11:10 [facility] 04/03 13:36 Order name: Comprehensive Metabolic Panel [facility]WA 04/03 13:36 Order name: Comprehensive Metabolic Panel [facility] 04/03 09:31 Order name: CT Abd/Pelvis - IV Contrast Only; Complete Time: 11:10 [facility] 04/03 13:36 Order name: Magnesium EDWA 04/03 13:36 Order name: Magnesium EDMS 04/03 13:36 Order name: Phosphorus [facility]WA 04/03 13:36 Order name: Phosphorus [facility] 04/03 13:36 Order name: CBC with Automated Diff EDWA 04/03 13:36 Order name: CBC with Automated Diff [facility]WA 04/03 13:36 Order name: Abdomen Acute Series; Complete Time: 17:33 [facility]WA 04/03 09:25 Order name: IV Saline Lock; Complete Time: 09:44 [facility] 04/03 09:25 Order name: Labs collected and sent; Complete Time: 09:44 [facility] 04/03 13:36 Order name: CONS Physician Consult [facility] 04/03 13:36 Order name: NPO EDWA Administered Medications: 09:54 Drug: Zofran (Ondansetron) 4 mg Route: IVP; Site: left antecubital; tw2 14:09 Follow up: Response: No adverse reaction tw2 09:56 Drug: morphine 4 mg {Note: RASS 0.} Route: IVP; Site: left antecubital; tw2 10:50 Follow up: Response: No adverse reaction; Pain is decreased; RASS: Alert and Calm (0) tw2 Disposition: 04/03/21 15:52 Hospitalization ordered by Kamaljit Esquivel for Inpatient Admission. Preliminary diagnosis is Small Bowel Obstruction, Abdominal Pain, Ascites, Cirrhosis. - Bed requested for Telemetry/MedSurg (Inpatient). - Status is Inpatient Admission. tw2 - Condition is Fair. - Problem is an acute exacerbation. - Symptoms have improved. Signatures: Dispatcher [employer] EDMS Lelia Lyman Kevin, MD MD kdr Anjali Crawford RN RN iw Thelma Cline RN RN tw2 Corrections: (The following items were deleted from the chart) 16:08 15:52 Hospitalization Ordered by Kamaljit Esquivel MD for Inpatient Admission. Preliminary bd diagnosis is Small Bowel Obstruction, Abdominal Pain, Ascites, Cirrhosis. Bed requested for Telemetry/MedSurg (Inpatient). Status is Inpatient Admission. Condition is Fair. Problem is an acute exacerbation. Symptoms have improved. kdr 16:37 16:08 04/03/2021 15:52 Hospitalization Ordered by Kamaljit Esquivel MD for Inpatient tw2 Admission. Preliminary diagnosis is Small Bowel Obstruction, Abdominal Pain, Ascites, Cirrhosis. Bed requested for Telemetry/MedSurg (Inpatient). Status is Inpatient Admission. Condition is Fair. Problem is an acute exacerbation. Symptoms have improved. bd
[2021-04-03 17:10] VITALS: BMI 28.8
[2021-04-03] MEDS: NA CHLORIDE 0.9% 1,000 ML IV SCH (17:23)
[2021-04-03] MEDS: HYDROMORPHONE HCL 1 MG/ML INJ IV PRN (17:23)
[2021-04-03] MEDS: METRONIDAZOLE 500mg IVPB 500 MG/100 ML BAG IV SCH ×2 (17:23→23:17)
[2021-04-03] MEDS ORDERED: PNEUMOCOCCAL VACCINE 0.5 ML IMVAC ONE (20:00)
[2021-04-04] MEDS: NA CHLORIDE 0.9% 1,000 ML IV SCH ×3 (03:20→20:04)
[2021-04-04] MEDS: METRONIDAZOLE 500mg IVPB 500 MG/100 ML BAG IV SCH ×4 (05:09→20:00)
[2021-04-04 05:35] LABS: Absolute Lymphocytes (CBC) 1.1 K/uL (0.7-4.9); Basophils % 0.8 % (0-1.3); Hematocrit 30.8 % (39.6-49.0); MPV 7.2 fL (7.6-11.3); RBC Red Blood Cell Count 3.28 M/uL (4.33-5.43)
[2021-04-04 05:53] LABS: Albumin 2.4 g/dL (3.4-5.0); Bilirubin Total 1.5 mg/dL (0.2-1.0); Magnesium 1.9 mg/dL (1.8-2.4); Phosphorus 3.2 mg/dL (2.5-4.9); Potassium 4.6 mmol/L (3.5-5.1); Protein, Total 6.3 g/dL (6.4-8.2)
--- NOTE | 2021-04-04 07:46 | RAD REPORT ---
EXAM DESCRIPTION: RAD - Abdomen W Erect - 04/04/2021 6:21 am CLINICAL HISTORY: SBO COMPARISON: Abdomen Pelvis W Contrast dated 04/03/2021 TECHNIQUE: Supine and upright views of the abdomen were obtained. FINDINGS: The multiple dilated small bowel pattern is no longer identifiable. Air and stool are scat tered in nondilated colon to the level of the rectum. Numerous surgical clips seen in the left upper quadrant. Contrast is present in the bladder from prior CT examination. No free air or pneumatosis. N o emergent changes from prior imaging. IMPRESSION: Complete or near complete resolution of the dilated small bowel pattern seen on the April 03 CT study.
[2021-04-04] MEDS: ENOXAPARIN 30 MG/0.3 ML SQ SCH (09:12)
[2021-04-04] MEDS: HYDROMORPHONE HCL 1 MG/ML INJ IV PRN (09:13)
[2021-04-04] MEDS ORDERED: MINERAL OIL 30 ML UCUP PO ONE ×2 (11:54→13:32)
--- NOTE | 2021-04-04 13:39 | P.CNS ---
Date of Consult: 04/04/21 PC: This 65-year-old male presents emergency room with severe abdominal pain for diagnosis and treatment. HPC: Patient, who has a large bilateral ventral hernia presented emergency room with a 12 hr history of abdominal pain. The prior day indeed a regular dinner, but notices abdomen was swelling and causing increasing pain in discomfort. He has had documented hernias for a number of years, they acute larger over time but they are usually reducible. There now causing him pain in discomfort. PMH: Cirrhosis PSHx: Exploratory laparotomy, SOC: No known allergies SYS REVIEW: No cough, wheeze, shortness of breath. States he has been in relatively good health with good appetite. He is under the care of a drive tester in [place] and has an appointment Thursday. Denies any urinary complaints. Thinks he may have got dehydrated over the lobe we can but not sure. O/E awake alert vital signs are stable HEENT: Not Hussein do Chest: Air entry equal bilaterally ABD: 2 large midline incision. Has a hernia on either side of this. The contents are soft, non tense, there is no erythema over the hernias themselves. He has received pain medicine and states he feels much better. LOCO: Intact DATA: CT scan shows loops of small bowel and is hernias. There is a question of partial bowel obstruction and mild congestion of the blood vessels. IMPRESSION: This patient, has partial small-bowel obstruction secondary to his 2 ventral hernias. The also has massive ascites. PLAN: This patient, he is feeling better at the current time. I feel that he may have had a partial SBO secondary to a may alleviate prior. He was on observing that his abdomen has gotten bigger and was obvious hernias back in. At the current time there soft, nontender, he states he feels much better. Has been up ambulating. He will not require surgery at this time. I also explained him to that he needs to get his cirrhosis under control, work with his drive tester, and at a later date it may be possible to get these fixed, but at the current time.
--- NOTE | 2021-04-04 13:42 | P.PN ---
Date of Service: 04/04/21 S: Patient feels better than he did yesterday, has been up ambulating, has had no pain overnight. O: Abdomen is soft, nontender, no guarding or rebound. Hernias are easily reducible. A: Partial small-bowel obstruction appears to be resolved P: I will order abdominal binder for this patient. He was instructed on its use. He is also advises diet, and follow up with his doctors in [place]. He appears to be comfortable with this idea.
[2021-04-04] MEDS ORDERED: HOME MED 1 EA UNK (Lactulose [Lactulose] 10 GM/15 ML Solution) PO SCH (18:44)
[2021-04-04] MEDS: LACTULOSE 20 GM/30 ML UCUP PO SCH (20:09)
[2021-04-04] MEDS ORDERED: MORPHINE 2 MG/ML SYR IV PRN (21:16)
[2021-04-05] MEDS: METRONIDAZOLE 500mg IVPB 500 MG/100 ML BAG IV SCH ×2 (01:11→08:31)
--- NOTE | 2021-04-05 03:16 | P.HP ---
Certification for Inpatient Patient admitted to: Inpatient With expected LOS: >2 Midnights Patient will require the following post-hospital care: None Practitioner: I am a practitioner with admitting privileges, knowledge of patient current condition, hospital course, and medical plan of care. Services: Services provided to patient in accordance with Admission requirements found in Title 42 Section 412.3 of the Code of Federal Regulations Patient History Date of Service: 04/03/21 Reason for admission: Small-bowel obstruction History of Present Illness: Patient is a 65-year-old gentleman with a history of large ventral hernia is who presents to the hospital with abdominal pain and nausea and vomiting. Patient was having severe pain and came to the emergency room for further evaluation. X-rays reveal patient with small-bowel obstruction. This was felt to be secondary to patient's ventral hernias. In regard to this concern was that hernia needed to be reduced. Patient was admitted to the hospital for further evaluation. General surgery consultation as well. Patient also with a history of liver cirrhosis. Patient follows up in [place] with a nuclear design engineer. Hopefully, patient's small-bowel obstruction alleviates. Continue with pain medication, anti emetics, and gentle hydration. Will speak with General surgery and patient given mineral oil as well. Repeat chest x-ray in a.m.. Allergies No Known Allergies Allergy (Unverified 05/20/16 14:04) Home Medications: Lactulose 15 ml PO BID 04/03/21 Melatonin 1 cap PO BEDTIME 04/03/21 Spironolactone 1 tab PO DAILY 04/03/21 Trazodone HCl 1 tab PO BEDTIME 04/03/21 - Past Medical/Surgical History Has patient received pneumonia vaccine in the past: No Diabetic: No -: Renal cell carcinoma -: Nephrectomy - Family History Father Medical History: Heart disease Mother Medical History: Diabetes - Social History Smoking Status: Former smoker Alcohol use: No Place of Residence: Home Review of Systems 10-point ROS is otherwise unremarkable Physical Examination - Vital Signs Temperature: 98.9 F Blood Pressure: 103/56 Pulse: 87 Respirations: 16 Pulse Ox (%): 91 - Physical Exam General: Alert, In no apparent distress, Oriented x3 HEENT: Atraumatic, PERRLA, Mucous membr. moist/pink, EOMI, Sclerae nonicteric Neck: Supple, 2+ carotid pulse no bruit, No LAD, Without JVD or thyroid abnormality Respiratory: Clear to auscultation bilaterally, Normal air movement Cardiovascular: Regular rate/rhythm, Normal S1 S2, No murmurs Gastrointestinal: No rebound, No guarding, Other (Ventral hernias with tenderness), Absent bowel sounds, Distended, Tenderness Musculoskeletal: No clubbing, No swelling, No tenderness Integumentary: No rashes Neurological: Normal gait, Normal speech, Normal strength at 5/5 x4 extr, Normal tone, Sensation intact, Cranial nerves 3-12 intact, Normal affect Lymphatics: No axilla or inguinal lymphadenopathy Assessment & Plan - Problems (Diagnosis) (1) Small bowel obstruction Current Visit: Yes Status: Acute (2) Liver cirrhosis Current Visit: Yes Status: Acute (3) Ventral hernia with bowel obstruction Current Visit: Yes Status: Acute (4) History of renal cell carcinoma Current Visit: Yes Status: Acute - Plan Plan: 1. Gentle hydration 2. Pain control 3. Anti emetics 4. Surgery consultation 5. Mineral oil 6. Reduce ventral hernia to alleviate obstruction 7. Monitor electrolytes 8. GI and DVT prophylaxis Discharge Plan: Home Plan to discharge in: Greater than 2 days - Advance Directives Does patient have a Living Will: No Does patient have a Durable POA for Healthcare: No - Code Status/Comfort Care Code Status Assessed: Yes Code Status: Full Code Critical Care: No Time Spent Managing PTS Care (In Minutes): 45
--- NOTE | 2021-04-05 03:22 | P.PN ---
Subjective Date of Service: 04/04/21 Subjective: No new changes, No C/O voiced, Improving Review of Systems 10-point ROS is otherwise unremarkable Physical Examination - Vital Signs Temperature: 98.9 F Blood Pressure: 103/56 Pulse: 87 Respirations: 16 Pulse Ox (%): 91 - Physical Exam General: Alert, In no apparent distress, Oriented x3 Respiratory: Clear to auscultation bilaterally, Normal air movement Cardiovascular: Regular rate/rhythm, Normal S1 S2, No murmurs Gastrointestinal: Hypoactive, Soft and benign, Non-distended, No rebound, No guarding, Other (Ventral hernia), Tenderness Musculoskeletal: No clubbing, No swelling, No tenderness Integumentary: No rashes Neurological: Normal speech, Normal tone, Sensation intact, Cranial nerves 3-12 intact, Normal affect Lymphatics: No axilla or inguinal lymphadenopathy - Studies Medications List Reviewed: Yes Assessment & Plan - Problems (Diagnosis) (1) Small bowel obstruction Current Visit: Yes Status: Acute (2) Liver cirrhosis Current Visit: Yes Status: Acute (3) Ventral hernia with bowel obstruction Current Visit: Yes Status: Acute (4) History of renal cell carcinoma Current Visit: Yes Status: Acute - Plan Plan: Continue with plan of care as mentioned below the axilla 1. Gentle hydration 2. Pain control 3. Advanced diet as tolerated 4. Surgery consultation 5. Mineral oil; if patient has a bowel movement anticipate discharge home 6. Reduced ventral hernia; obstruction appears to have resolved 7. Monitor electrolytes 8. GI and DVT prophylaxis Discharge Plan: Home Plan to discharge in: 48 Hours - Advance Directives Does patient have a Living Will: No Does patient have a Durable POA for Healthcare: No - Code Status/Comfort Care Code Status: Full Code Critical Care: No Time Spent Managing PTS Care (In Minutes): 30
[2021-04-05] MEDS: NA CHLORIDE 0.9% 1,000 ML IV SCH (05:50)
[2021-04-05] MEDS: LACTULOSE 20 GM/30 ML UCUP PO SCH (08:30)
[2021-04-05] MEDS: ENOXAPARIN 30 MG/0.3 ML SQ SCH (08:31)
[2021-04-05 10:36] VITALS: BP 100/59; TEMP 97.7
[2021-04-05 11:02] VITALS: O2SAT 92
--- NOTE | 2021-04-16 17:26 | P.DS ---
Discharge Date: 04/05/21 Disposition: ROUTINE DISCHARGE Discharge Condition: GOOD Reason for Admission: Small-bowel obstruction - Problems (1) Small bowel obstruction Status: Acute (2) Liver cirrhosis Status: Acute (3) Ventral hernia with bowel obstruction Status: Acute (4) History of renal cell carcinoma Status: Acute Brief History of Present Illness: Patient is a 65-year-old gentleman with a history of large ventral hernia is who presents to the hospital with abdominal pain and nausea and vomiting. Patient was having severe pain and came to the emergency room for further evaluation. X-rays reveal patient with small-bowel obstruction. This was felt to be secondary to patient's ventral hernias. In regard to this concern was that hernia needed to be reduced. Patient was admitted to the hospital for further evaluation. General surgery consultation as well. Patient also with a history of liver cirrhosis. Patient follows up in [place] with a plumbing warehouse helper. Hopefully, patient's small-bowel obstruction alleviates. Continue with pain medication, anti emetics, and gentle hydration. Will speak with General surgery and patient given mineral oil as well. Repeat chest x-ray in a.m.. Hospital Course: Patient did well during hospitalization. Patient's hernias were easily reducible. Patient started having bowel movements. General surgery recommended abdominal binder which we were able to get from materials. Mineral oil was also prescribed as this helped patient clear his bowels. At this time patient is stable for discharge home. We advise for general surgery follow-up in the [place] area for hernia repair if that is something he elects to do. Vital Signs/Physical Exam: Temp Pulse Resp BP Pulse Ox 97.7 F 82 16 100/59 L 92 04/05/21 08:00 04/05/21 08:00 04/05/21 08:38 04/05/21 08:00 04/05/21 08:38 General: Alert, In no apparent distress, Oriented x3 Laboratory Data at Discharge: WBC 8.70 K/uL (4.3-10.9) D 04/04/21 05:13 Hgb 11.0 g/dL (13.6-17.9) L 04/04/21 05:13 Hct 30.8 % (39.6-49.0) L D 04/04/21 05:13 Plt Count 168 K/uL (152-406) 04/04/21 05:13 Sodium 137 mmol/L (136-145) 04/04/21 05:13 Potassium 4.6 mmol/L (3.5-5.1) 04/04/21 05:13 BUN 20 mg/dL (7-18) H 04/04/21 05:13 Creatinine 1.22 mg/dL (0.55-1.3) 04/04/21 05:13 Glucose 80 mg/dL (74-106) 04/04/21 05:13 Phosphorus 3.2 mg/dL (2.5-4.9) 04/04/21 05:13 Magnesium 1.9 mg/dL (1.8-2.4) 04/04/21 05:13 Total Bilirubin 1.5 mg/dL (0.2-1.0) H 04/04/21 05:13 AST 26 U/L (15-37) 04/04/21 05:13 ALT 23 U/L (12-78) 04/04/21 05:13 Alkaline Phosphatase 110 U/L (45-117) 04/04/21 05:13 Lipase 102 U/L (73-393) 04/03/21 09:40 Home Medications: Lactulose 15 ml PO BID 04/03/21 Melatonin 1 cap PO BEDTIME 04/03/21 Spironolactone 1 tab PO DAILY 04/03/21 Trazodone HCl 1 tab PO BEDTIME 04/03/21 Hydrocodone 10/APAP 325 [[place] 10/325] 1 tab PO Q12H PRN #30 tab 04/05/21 Mineral Oil 30 ml PO M,W,F PRN #1000 ml 04/05/21 Promethazine Tab [Phenergan] 25 mg PO Q6HP PRN #30 tab 04/05/21 New Medications: Mineral Oil 30 ml PO M,W,F PRN #1000 ml PRN Reason: Constipation Hydrocodone 10/APAP 325 [[place] 10/325] 1 tab PO Q12H PRN #30 tab PRN Reason: Severe Pain Promethazine Tab [Phenergan] 25 mg PO Q6HP PRN #30 tab PRN Reason: Nausea/vomiting Physician Discharge Instructions: OK TO DC IV AND DC HOME FOLLOW-UP WITH PRIMARY CARE PROVIDER IN 1-2 WEEKS FOLLOW-UP WITH General surgery, on Dr. Lunsford, IN 1-2 WEEKS RETURN TO THE ER IF symptoms worsen CALL or TEXT DR. LERMA AT [phone] IF ANY QUESTIONS REGARDING HOSPITAL STAY. PLEASE CALL THE FLOOR AT [phone] IF ANY MEDICATION OR NURSING QUESTIONS. Diet: AHA Activity: Fall precautions Followup: Patrick Lunsford MD [ACTIVE - CAN ADMIT] - OOT,OOT [Primary Care Provider] - Time spent managing pt's care (in minutes): 35
== END 2021-04-05 11:20 | disposition home or self-care (01) | DRG 394 ==
LOC: ER 09:06 → ERHOLD 13:32 → 2ND 16:21
PROVIDERS: ADMIT Hospitalist; ATTEND Hospitalist
DX: K43.6 Other and unspecified ventral hernia with obstruction, without gangrene (principal); R18.8 Other ascites; K74.60 Unspecified cirrhosis of liver; Z85.528 Personal history of other malignant neoplasm of kidney; Z90.5 Acquired absence of kidney; Z87.891 Personal history of nicotine dependence
CPT/HCPCS: 36415; 74019; 74022; 74177; 80048; 80053; 80076; 83690; 83735; 84100; 85025; 96374; 96375; 99285; J1170; J1650; J2270; J2405; J7030; Q9967

== ENCOUNTER 2021-04-25 17:48 | Inpatient (IN) | payer OTHER, SELFPAY ==
--- OUTSIDE RECORDS SUMMARY | 2021-04-25 17:52 | XMS REPORT | Continuity of Care Document ---
:1955 Author Organization [facility] t Address [address] [place] [address] Care Team Providers Name Role Phone Turner Attending Clinician Jaspal Brown Attending Clinician Problems Condition Condition Condition Status Onset Resolution Last Treating Co mments Source Name Details Category Date Date Treatment Clinician Date CLINIC Diagnosis Active 2021-04-05 Mem oria VISIT 01-08 11:10:00 l CLINIC 00:00: [place] VISIT 00 Active 01/08/2021 [facility] BEDDED OP/ Diagnosis Active 2019-102020-10-22 Memoria THERAPEUTI 12-16 13:06:00 l C BEDDED 00:00: Alfredo PARACENTES OP/ 00 IS THERAPEUTI C PARACENTES IS Active [facility] NEW PT Diagnosis Active 2019-102020-10-15 Mem oria CONSULT - 2- 10:59:00 l ABN NEW PT 00:00: [place] IMAGING CONSULT - 00 ABN IMAGING Active 09/25/2020 [facility] ABDOMINAL Diagnosis Active 2019-102020-09-27 Memoria SWELLING 2- 12:31:00 l 00:00: [place] ABDOMINAL 00 SWELLING Active 09/24/2020 [facility] Cirrhosis Problem Active 2021-01-09 Me moria of liver 22:54:11 l (disorder) Ryder n Cirrhosis of liver (disorder) Active Problem 01/09/2021 [facility] History of Past Illness Condition Condition Condition Status Onset Resolution Last Treating Co mments Source Name Details Category Date Date Treatment Clinician Date Generalize Problem 2019-102020-09-26 2020-09-26 Memoria d 2- 23:38:55 23:38:55 l abdominal 18:00: Alfredo pain Generalize 00 d abdominal pain 09/24/2020 09/26/2020 [facility] Allergies, Adverse Reactions, Alerts Allergy Allergy Status Severity Reaction(s) Onset Inactive Treating Comm ents Source Name Type Date Date Clinician No Known No Known Active Johan weir Medicati Medicati l on on [place] Allergie Allergie s s Social History Social Habit Start Date Stop Date Quantity Comments Source Social History 2021-01-07 2021-01-07 [facility] 14:12:42 14:12:42 Medications Ordered Filled Start Stop Current Ordering Indication Dosage Frequency Signature Comments Components Source Medication Medication Date Date Medication? Clinician (SIG) Name Name Lactulose Yes 10 gm = 15 Me moria 667 MG/ML 3-22 mL, PO, l Oral 15:04: BID, X 90 [place] Solution 00 day, # 2700 mL, 8 Refill(s), Pharmacy: [facility] 149, 175.26, cm, 01/07/21 9:09:00 CDT, Height, 81.875, kg, 01/07/21 9:09:00 CDT, Weight Melatonin Yes = 1 tab, John magdalena 3-22 PO, l 14:15: Bedtime, 0 [place] 00 Refill(s) Trazodone Yes 100 mg = 1 Me moria Hydrochlori 3-22 tab, PO, l de 100 MG 14:14: Bedtime, # He rmann Oral Tablet 00 30 tab, 1 Refill(s) Lidocaine No 100 mg, Memor ia Hydrochlori - Route: l de 10 MG/ML 21:43: INTRADERM, [place] Injectable 00 Dosing Solution Weight 88.636, kg, ONCE, Start date: 10/22/20 15:43:00 RATE AND COST ANALYST, Stop date: 10/22/20 15:43:00 RATE AND COST ANALYST Lidocaine No 100 mg, Memor ia Hydrochlori -04 Route: l de 10 MG/ML 21:21: INTRADERM, [place] Injectable 00 Dosing Solution Weight 88.636, kg, ONCE, Start date: 10/22/20 15:21:00 RATE AND COST ANALYST, Stop date: 10/22/20 15:21:00 RATE AND COST ANALYST Furosemide 2019-10 Yes 40 mg = 1 Me moria 40 MG Oral 2-29 tab, PO, l Tablet 17:47: Daily, # [place] 00 30 tab, 6 Refill(s), Pharmacy: [facility] 149, 175.26, cm, 10/15/20 10:54:00 RATE AND COST ANALYST, Height, 88.636, kg, 10/15/20 10:54:00 RATE AND COST ANALYST, Weight Trazodone 2019-10 Yes 50 mg = 1 Mem oria Hydrochlori 2-28 tab, PO, l de 50 MG 17:03: Bedtime, # [facility] Oral Tablet 00 30 tab, 1 Refill(s) Naltrexone 2019-10 Yes 1.5 mg, John magdalena 2-28 PO, BID, 0 l 17:03: Refill(s) Alfredo 00 spironolact 2019-10 Yes 100 mg = 1 Memoria one 100 mg 2-28 tab, PO, l oral tablet 17:03: Daily, # He rmann 00 30 tab, 0 Refill(s) Hydroxyzine 2019-10 Yes 25 mg = 1 M emoria Hydrochlori 2-08 tab, PO, l de 25 MG 02:57: QID, PRN Rosibel nn Oral Tablet 00 Itching, X 10 day, # 30 tab, 0 Refill(s) Hydroxyzine 2019-10 No Notes: John magdalena 2-08 (Same as: l 01:05: Atarax) Alfredo 00 Avoid alcohol. Benadryl 2019-10 No 25 mg, Memoria 2 Route: PO, l 22:13: Drug form: LIQ, ONCE, Dosing Weight 90.909, kg, Priority: STAT, Start date: 09/24/20 16:13:00 RATE AND COST ANALYST, Stop date: 09/24/20 16:13:00 RATE AND COST ANALYST Ibuprofen 2019-10 No 600 mg, Memor ia 11-25 Route: PO, l 22:13: ONCE, Dosing Weight 90.909, kg, Priority: STAT, Start date: 09/24/20 16:13:00 RATE AND COST ANALYST, Stop date: 09/24/20 16:13:00 RATE AND COST ANALYST Vital Signs Vital Name Observation Time Observation Value Comments Source Systolic (mm Hg) 2021-01-07 14:09:00 John rial [place] Diastolic (mm Hg) 2021-01-07 14:09:00 Mem orial [place] Heart Rate 2021-01-07 14:09:00 [facility] Height 2021-01-07 14:09:00 175.26 cm [facility] [place] Weight 2021-01-07 14:09:00 [facility] [place] BMI Calculated 2021-01-07 14:09:00 Memori al [place] Respitory Rate 2020-10-22 21:57:00 Memori al [place] Systolic (mm Hg) 2020-10-22 21:57:00 John rial [place] Diastolic (mm Hg) 2020-10-22 21:57:00 Mem orial [place] Respitory Rate 2020-10-22 20:48:00 Memori al [place] Systolic (mm Hg) 2020-10-22 20:48:00 John rial [place] Diastolic (mm Hg) 2020-10-22 20:48:00 Mem orial [place] Height 2020-10-22 19:40:00 172.72 cm [facility] Weight 2020-10-22 19:40:00 [facility] [place] BMI Calculated 2020-10-22 19:40:00 Memori al [place] Systolic (mm Hg) 2020-10-15 16:54:00 John rial [place] Diastolic (mm Hg) 2020-10-15 16:54:00 Mem orial [place] Heart Rate 2020-10-15 16:54:00 [facility] [place] Height 2020-10-15 16:54:00 175.26 cm [facility] Weight 2020-10-15 16:54:00 [facility] [place] BMI Calculated 2020-10-15 16:54:00 Memori al [place] Systolic (mm Hg) 2020-09-25 03:05:00 John rial [place] Diastolic (mm Hg) 2020-09-25 03:05:00 Mem orial [place] Temperature Oral (F) 2020-09-25 03:05:00 98 F [facility] Respitory Rate 2020-09-25 03:05:00 Memori al [place] Systolic (mm Hg) 2020-09-25 02:39:00 John rial [place] Diastolic (mm Hg) 2020-09-25 02:39:00 Mem orial Alfredo Temperature Oral (F) 2020-09-25 02:39:00 97.7 F [facility] [place] Respitory Rate 2020-09-25 02:39:00 Memori al [place] Respitory Rate 2020-09-25 01:11:00 Memori al [place] Systolic (mm Hg) 2020-09-25 01:11:00 John riacarmella [place] Diastolic (mm Hg) 2020-09-25 01:11:00 Mem orial [place] Height 2020-09-24 21:50:00 175.26 cm [facility] BMI Calculated 2020-09-24 21:50:00 Memori al [place] Weight 2020-09-24 21:50:00 [facility] Heart Rate 2020-09-24 21:50:00 [facility] Temperature Oral (F) 2020-09-24 21:50:00 98.1 F [facility] Procedures Procedure Date / Time Performed Performing Clinician [facility] e Abdominal paracentesis 2020-10-22 21:59:06 Daniel Fuentes (diagnostic or therapeutic); with imaging guidance Kidney excision [facility] [place] Procedure [facility] colon [facility] Encounters Start End Encounter Admission Attending Care Care Encounter Source Date/Time Date/Time Type Type Clinicians Facility Department ID 2021-04-05 Outpatient [facility] [id number] [facility] 11:08:22 2021-01-07 2021-01-07 Outpatient Turner [facility] [id number] 09:00:00 23:59:00 Tugrul 2021-01-07 2021-01-07 Outpatient [facility] [id number] [facility] 09:00:00 09:00:00 2020-10-22 2020-10-22 Outpatient Turner [facility] [id number] 12:51:00 16:08:00 Tugrul 2020-10-22 2020-10-22 Outpatient [facility] [id number] [facility] 12:51:00 12:51:00 2020-10-15 2020-10-15 Outpatient Turner [facility] [id number] 10:51:00 23:59:00 Tugrul 2020-10-15 2020-10-15 Outpatient [facility] [id number] [facility] 10:51:00 10:51:00 2020-09-24 2020-09-[id number] 15:26:24 21:26:00 Peter 00 Jaspal 2020-09-24 2020-09-24 Emergency E [facility] [id number] [facility] 15:26:00 15:26:00 Results Test Description Test Time Test Comments Results Result Comments Source ANEMIA STUDY 2021-01-07 67 [facility] 15:11:00 ANEMIA STUDY 2021-01-07 319 [facility] 15:11:00 ANEMIA STUDY 2021-01-07 21 [facility] 15:11:00 ANEMIA STUDY 2021-01-07 105 [facility] 15:11:00 CHEM PANEL 2021-01-07 84 [facility] nn 15:11:00 CHEM PANEL 2021-01-07 25 [facility] nn 15:11:00 CHEM PANEL 2021-01-07 1.51 [facility] nn 15:11:00 CHEM PANEL 2021-01-07 136 [facility] [place] nn 15:11:00 CHEM PANEL 2021-01-07 4.0 [facility] nn 15:11:00 CHEM PANEL 2021-01-07 104 [facility] [place] nn 15:11:00 CHEM PANEL 2021-01-07 23 [facility] [place] nn 15:11:00 CHEM PANEL 2021-01-07 10.0 [facility] [place] nn 15:11:00 CHEM PANEL 2021-01-07 13.0 [facility] [place] nn 15:11:00 CHEM PANEL 2021-01-07 48 [facility] [place] nn 15:11:00 CHEM PANEL 2021-01-07 8.1 [facility] nn 15:11:00 CHEM PANEL 2021-01-07 3.4 [facility] nn 15:11:00 CHEM PANEL 2021-01-07 26 [facility] [place] nn 15:11:00 CHEM PANEL 2021-01-07 36 [facility] [place] nn 15:11:00 CHEM PANEL 2021-01-07 126 [facility] [place] nn 15:11:00 CHEM PANEL 2021-01-07 1.5 [facility] [place] nn 15:11:00 CHEM PANEL 2021-01-07 0.6 [facility] nn 15:11:00 CHEM PANEL 2021-01-07 0.9 [facility] nn 15:11:00 CHEM PANEL 2021-01-07 4.7 [facility] nn 15:11:00 CHEM PANEL 2021-01-07 15:11:00 Test Item Value Reference Range Interpretation Comme nts A/G Ratio (test code = A/G Ratio) 0.7 1 0.7-1.6 [facility] MzicmtoAQZYVWIJST6800-23-04 15:11:0074.7[facility]annHEMATOLOGY 2021-01-07 15:11:0014.7[facility] FrfemjsQJZEXAJHXR7205-13-52 15:11:008.6[facility] ZetvjgcUYXVZNBIZL2505-41-23 15:11:000.9[facility] SorpvzoDJWWIEIPBW5879-57-10 15:11:001.1[facility] FdesetwDPQTYIWQQV6733-02-37 15:11:005.3[facility] [place] NJQXNNBGUO5304-56-55 15:11:001.0[facility] XfsfensDLLUGSJGUZ0355-21-62 15:11:000.6 [facility] ZspbyeyTXKZZGPZIM6513-91-58 15:11:000.1[facility]annHEMATOLOGY 2021-01-07 15:11:000.1[facility] UevhfazYNSXNYNNKT5143-73-52 15:11:007.1[facility] KqfvokjFBTYVVEJWE6872-22-47 15:11:004.17[facility] OkggtdwAAYYCZWEAO2401-40-22 15:11:0013.4[facility] BfbzyglKKZDBVIMAS5993-84-55 15:11:0039.8[facility] [place] JWLAGKKGRS0151-30-47 15:11:0095.3[facility] YjuxnbrABLAVKFHTP2866-52-20 15:11:00 Test Item Value Reference Range Interpretation Comments MCH (test code = MCH) 32.1 pg 27.0-31.0 [facility] RbvktxiXLOCIYFHHH6799-25-38 15:11:0033.7[facility] HermannHEMATOLOGY 2021-01-07 15:11:0014.8[facility] CxgjqtiLWYEIJVVOQ2723-91-88 15:11:47526Eadwgtrz ZqgbjwrACEQXDVFJI0875-50-05 15:11:008.0[facility] EaarfxpXPLWKIZUTW8953-04-67 15:11:00 Test Item Value Reference Range Interpretation Comments PT (test code = PT) 14.6 s 12.0-14.7 [facility] QufwjwdQYTTJQIMGR7987-35-41 15:11:00 Test Item Value Reference Range Interpretation Comments INR (test code = INR) 1.16 1 0.85-1.17 [facility] UdfziffUXPZOMYETF0099-22-06 15:11:00<5[facility] HermannIMMUNOLOGY 2021-01-07 15:11:00 Test Item Value Reference Range Interpretation Comments Hep Signal to Cut-Off (test code = Hep 0.30 1 Signal to Cut-Off) [facility] AxqkvpkHKODFJECGX5454-31-70 15:11:0042[facility] HermannIMMUNOLOGY 2021-01-07 15:11:721170Kpmzkazj DbluwotGSRYZYAAQA5728-15-81 15:11:0074[facility] HermannBODY WBHSGX3886-28-07 21:24:001[facility]annBODY FMCYNA7495-97-97 21:24:0096[facility]annBODY TXEIHA3673-28-16 21:24:003[facility]annBODY IUUGWZ9955-72-98 21:24:00Yellow (10/22/20 3:24 PM)[facility] FLUIDS 2020-10-22 21:24:00Slight Cloudy (10/22/20 3:24 PM)[facility]annBODY FLUIDS 2020-10-22 21:24:34764Hrzaqqvp HermannBODY PLWZEM8491-41-25 21:24:002[facility] HermannBODY JMYFQV5902-20-43 21:24:00Ascites (10/22/20 3:24 PM)[facility] [place] BODY SPYEEI8915-46-69 21:24:001.4[facility] HermannBODY EWYCYY4741-18-13 21:24:00 Paracen *NA*(10/22/20 3:24 PM)[facility]annCHEM DYJTB6277-89-40 18:58:000.7 [facility]annCHEM OPBUQ0868-70-77 18:58:001.5[facility] HermannCHEM PANEL 2020-10-15 18:58:69196Yuzkkwpb HermannCHEM FDUKN2881-18-46 18:58:0039[facility] HermannCHEM LQLKO0076-07-75 18:58:0018[facility] EbdydfuKVTOFAHFGU5211-00-68 18:58:007.6[facility] FpsjaaiOGAOJYUUOF2769-49-46 18:58:004.17[facility] VFXDJYQCXX0215-25-39 18:58:0012.6[facility] MhsmktlAVIWJKUZWE2549-22-32 18:58:00 38.8[facility] BqlvnyeIUIBJQEMKB0648-99-41 18:58:0093.0[facility] HermannHEMATOLOGY 2020-10-15 18:58:00 Test Item Value Reference Range Interpretation Comments MCH (test code = MCH) 30.2 pg 27.0-33.0 [facility] UizqrxoOWOUGEPBFE2496-59-32 18:58:0032.5[facility] HermannHEMATOLOGY 2020-10-15 18:58:0014.8[facility] QyiipdtJEXSCHJUIU3087-16-76 18:58:24217Ifutgnoy BiebdgmCGLYPHKASG5177-14-67 18:58:0010.5[facility] DmffbabXZDRPWNWTO8841-01-52 18:58:264488Hrmlrpei DszvswyETXMMZNSGP2863-82-96 18:58:858209Hlpinpvd Alfredo HGPEDAWDTP0133-42-45 18:58:88866Irhkusdw LeilvczBAIAKTEIEX6746-57-87 18:58:17763 [facility] FrmvizlYGYOCODXAU6865-85-82 18:58:0076[facility] HermannHEMATOLOGY 2020-10-15 18:58:0062.4[facility] SfwkrxnCUKOYDFXYM2700-86-31 18:58:0022.7[facility] VkarxzhUCHMSIAMJH8124-41-25 18:58:0010.0[facility] EwhtsjxGLDOYSVTCR4967-87-27 18:58:003.9[facility] RinmiqrTHMQGZNXBV3650-73-64 18:58:001.0[facility] IDQXKMAMBZ6195-33-37 18:58:00 Test Item Value Reference Range Interpretation Comments INR (test code = INR) 1.1 1 [facility] YrfaqmgBCQMUPEMJF8821-12-84 18:58:00 Test Item Value Reference Range Interpretation Comments PROTIME (test code = PROTIME) 11.4 s 9.0-11.5 [facility]annCHEM OPAVY2923-50-88 18:58:0088[facility] HermannCHEM PANEL 2020-10-15 18:58:0018[facility] HermannCHEM TTHKQ0718-55-02 18:58:001.24[facility] HermannCHEM CTDUR0046-83-37 18:58:0061[facility] HermannCHEM WWHSS4548-26-50 18:58:0071[facility] HermannCHEM NGPJV1999-27-24 18:58:36330Eqzjvzgp HermannCHEM PBJBP6627-19-23 18:58:004.9[facility] HermannCHEM ZALTE9768-54-27 18:58:80205 [facility]annCHEM RBFYD9549-33-75 18:58:0026[facility] HermannCHEM PANEL 2020-10-15 18:58:009.8[facility] HermannCHEM GEDGC3820-60-30 18:58:007.3[facility] HermannCHEM RSPLR8524-28-36 18:58:003.3[facility] HermannCHEM JQFMO2500-43-50 18:58:004.0[facility] HermannCHEM HZXXY1809-05-17 18:58:000.8[facility] HermannCHEM MYAQL2545-26-80 18:58:002.2[facility] HermannTUMOR INXBIDV3640-22-75 00:29:001.5 [facility]annCHEM IMAIV6277-82-06 22:40:21918Frgftpqc HermannCHEM PANEL 2020-09-24 22:40:0013[facility] HermannCHEM OHVCA7437-63-26 22:40:001.35[facility] HermannCHEM JMRMX8696-94-99 22:40:78072Xtufyxwi HermannCHEM PICTA6882-21-84 22:40:004.4[facility] HermannCHEM BFBEW9322-38-54 22:40:36403Chrdqdoy HermannCHEM RZRIM5937-08-59 22:40:0024[facility] HermannCHEM BSMXM2248-78-43 22:40:009.2 [facility]annCHEM CLNDS6707-99-38 22:40:0011.4[facility] HermannCHEM PANEL 2020-09-24 22:40:0055[facility] HermannCHEM EILYH4039-77-43 22:40:007.5[facility] HermannCHEM CHWOU8083-59-96 22:40:002.6[facility] HermannCHEM JEAAQ6816-42-35 22:40:0031[facility] HermannCHEM HNKAL7473-01-00 22:40:0061[facility] HermannCHEM ZUDCQ4605-18-20 22:40:45832Ypnvbbmm HermannCHEM ZPWHK0098-86-18 22:40:001.5 [facility] HermannCHEM RISLS0770-01-93 22:40:000.8[facility] HermannCHEM PANEL 2020-09-24 22:40:000.7[facility] HermannCHEM ZRNIM1689-19-74 22:40:004.9[facility] HermannCHEM QITOY9640-19-97 22:40:00 Test Item Value Reference Range Interpretation Comments A/G Ratio (test code = A/G Ratio) 0.5 1 0.7-1.6 [facility] HjiaxfnLXOINSOFKA2217-68-50 22:40:005.7[facility] HermannHEMATOLOGY 2020-09-24 22:40:004.15[facility] LjymiaoMMFCAFEQZF9970-52-52 22:40:0013.0[facility] KltauzbZPGZFARHTA4626-83-32 22:40:0039.0[facility] MvlucibRKKIGBQZJE2392-07-66 22:40:0093.9[facility] FxexoqlRHCREVJLLK1619-37-28 22:40:00 Test Item Value Reference Range Interpretation Comments MCH (test code = MCH) 31.3 pg 27.0-31.0 [facility] DwetqwrYPOZZUZTQZ3255-14-55 22:40:0033.3[facility] HermannHEMATOLOGY 2020-09-24 22:40:0014.9[facility] NtjnezyWZGYRJYMMA1994-07-35 22:40:55971Yqfhrhsk CecnsokKWCPAOYCLX7264-90-70 22:40:007.6[facility] YsuyekyKKENUAMVRB4524-12-92 22:40:00 Test Item Value Reference Range Interpretation Comments PT (test code = PT) 15.3 s 12.0-14.7 [facility] JdnoioeBFOOSQOAFA7079-44-69 22:40:00 Test Item Value Reference Range Interpretation Comments INR (test code = INR) 1.20 1 0.85-1.17 [facility] BfvcnlaUJJFSWSLLP5552-75-65 22:40:00 Test Item Value Reference Range Interpretation Comments PTT (test code = PTT) 34.1 s 22.9-35.8 [facility] MkuyuuuUDFVUSFJDR2323-46-92 22:40:0067.0[facility] HermannHEMATOLOGY 2020-09-24 22:40:0017.2[facility] FmxvaaoGMKSGEXIXJ6731-85-68 22:40:0012.7[facility] OgzqsohANKTZXMDGY9118-44-35 22:40:002.4[facility] LvxcjhdYXYDIFGVHE5501-03-80 22:40:000.7[facility] PwgfidwXUEPMSLIIE4603-00-81 22:40:003.8[facility] [place] NPALPSOZQN5284-45-40 22:40:001.0[facility] HrkfzqlBNFCUHOKEY8860-20-62 22:40:000.7 [facility] XaofgmuSKGKOMUUTD6358-42-35 22:40:000.1[facility]
[2021-04-25] MEDS ORDERED: NA CHLORIDE 0.9% 1,000 ML ONE ×2 (20:26→22:49)
[2021-04-25] MEDS ORDERED: MORPHINE 4 MG/ML SYR ONE ×2 (20:26→22:33)
[2021-04-25] MEDS ORDERED: ONDANSETRON 4 MG/2 ML VIAL ONE ×2 (20:26→22:33)
[2021-04-25 20:39] LABS: Absolute Lymphocytes (CBC) 0.9 K/uL (0.7-4.9); Basophils % 0.4 % (0-1.3); Hematocrit 34.5 % (39.6-49.0); Lymphocytes % 7.6 % (15.3-44.8); MPV 7.7 fL (7.6-11.3); RBC Red Blood Cell Count 3.69 M/uL (4.33-5.43)
[2021-04-25 20:52] LABS: Albumin 2.7 g/dL (3.4-5.0); Bilirubin Direct 0.7 mg/dL (0-0.2); Bilirubin Total 1.8 mg/dL (0.2-1.0); Potassium 5.1 mmol/L (3.5-5.1); Protein, Total 7.4 g/dL (6.4-8.2)
--- NOTE | 2021-04-25 21:51 | RAD REPORT ---
EXAM DESCRIPTION: CTAbdomen Pelvis W Contrast - 04/25/2021 9:31 pm CLINICAL HISTORY: Abdominal pain. ABD PAIN COMPARISON: Abdomen Pelvis W Contrast dated 04/03/2021; Abdomen Pelvis W Contrast dated 05/20/2016; CT ABD PELVIS W CONTRAST dated 11/15/2008; CT ABD PELVIS W CONTRAST dated 12/30/2006 TECHNIQUE: Biphasic CT imaging of the abdomen and pelvis was performed with 100 ml non-ionic IV cont rast. All CT scans are performed using dose optimization technique as appropriate and may include automated exposure control or mA/KV adjustment according to patient size. FINDINGS: The lung bases are clear. Liver cirrhosis pattern is seen with multiple linear areas diminished density capsular retraction pre sent. The spleen is mildly enlarged. The pancreas and adrenal glands are normal. Right kidney demonst rate no hydronephrosis. Left kidney appears absent. Large ventral hernia is present containing multiple dilated small bowel loops. Pneumatosis is likely present within the dilated small bowel loop in the ventral hernia. Mild ascites is noted. Large right inguinal hernia containing ascites. No free intraperitoneal air. No evidence of significant lymphad enopathy. Mild lumbar degenerative changes. IMPRESSION: Small bowel obstruction is present likely result of large ventral hernia. There is evide nce of small bowel ischemia of the small bowel loops within the large ventral hernia sac. Liver cirrhosis with mild ascites.
--- NOTE | 2021-04-25 22:23 | ER ---
Nurse's Notes [facility] Name: Naif Loza Age: 65 yrs Sex: Male : 1955 Arrival Date: 04/25/2021 Time: 17:51 Bed 14 Private MD: Diagnosis: Small Bowel Obstruction with evidence of ischemia Presentation: 04/25 17:59 Chief complaint: Patient states: diffuse abd pain and diarrhea started today. Hx sv cirrhosis. Coronavirus screen: Client denies travel out of the [place] in the last 14 days. At this time, the client does not indicate any symptoms associated with coronavirus-19. Ebola Screen: No symptoms or risks identified at this time. Risk Assessment: Do you want to hurt yourself or someone else? Patient reports no desire to harm self or others. Onset of symptoms was April 25, 2021. 17:59 Method Of Arrival: Ambulatory sv 17:59 Acuity: VENKATESH 2 sv 18:01 Initial Sepsis Screen: Does the patient meet any 2 criteria? HR > 90 bpm. Does the sv patient have a suspected source of infection? No. Patient's initial sepsis screen is negative. Triage Assessment: 18:02 General: Appears in no apparent distress. uncomfortable, Behavior is calm, cooperative, sv appropriate for age. Pain: Complains of pain in abdomen. Neuro: Level of Consciousness is awake, alert, obeys commands, Oriented to person, place, time, situation, Gait is steady. Respiratory: Respiratory effort is even, unlabored. Historical: - Allergies: 18:00 No Known Allergies; sv - PMHx: 18:00 Anxiety; Cirrhosis; Hernia; sv - Immunization history:: Client reports receiving the 2nd dose of the Covid vaccine, Client reports receiving the 1st dose of the Covid vaccine. - Social history:: Smoking status: Patient denies any tobacco usage or history of. Screenin:15 Abuse screen: Denies threats or abuse. Nutritional screening: No deficits noted. ea Tuberculosis screening: No symptoms or risk factors identified. Fall Risk None identified. Assessment: 20:14 General: Appears uncomfortable, Behavior is appropriate for age. Pain: Complains of ea pain in abdomen. Neuro: Level of Consciousness is awake, alert, obeys commands, Oriented to person, place, time. Respiratory: Airway is patent Respiratory effort is even, unlabored, Respiratory pattern is regular. GI: Abd is soft X 4 quads. Derm: Skin is pink, warm \T\ dry. 21:28 Reassessment: Patient and/or family updated on plan of care and expected duration. Pain ea level reassessed. Patient is alert, oriented x 3, equal unlabored respirations, skin warm/dry/pink. Pt went to CT. 22:16 Reassessment: Patient and/or family updated on plan of care and expected duration. Pain ad5 level reassessed. Patient is alert, oriented x 3, equal unlabored respirations, skin warm/dry/pink. Pt reports abd pain, provider aware. Pt resting comfortably in stretcher, resp with ease. Awaiting further orders. VSS. 23:00 Reassessment: Patient and/or family updated on plan of care and expected duration. Pain ea level reassessed. Patient is alert, oriented x 3, equal unlabored respirations, skin warm/dry/pink. Vital Signs: 18:01 BP 130 / 69; Pulse 103; Resp 16; Temp 97.8; Pulse Ox 99% ; Weight 86.18 kg; Height 5 sv ft. 9 in. (175.26 cm); Pain 10/10; 20:15 BP 132 / 69; Pulse 93; Resp 18; Pulse Ox 96% ; ea 22:17 BP 131 / 68; Pulse 98; Resp 14 S; Pulse Ox 94% on R/A; ad5 23:00 BP 135 / 68; Pulse 88; Resp 18; Pulse Ox 99% ; ea 18:01 Body Mass Index 28.06 (86.18 kg, 175.26 cm) sv ED Course: 17:51 Patient arrived in ED. rg4 17:59 Arm band placed on. sv 18:00 Triage completed. sv 19:21 Claudia Mauro FNP-C is PHCP. kb 19:21 Yobany Sandoval MD is Attending Physician. kb 19:38 Lara Salamanca RN is Primary Nurse. ea 20:15 Patient has correct armband on for positive identification. Bed in low position. Call ea light in reach. Side rails up X2. library monitor on. Pulse ox on. NIBP on. 20:17 Inserted saline lock: 22 gauge in right antecubital area, using aseptic technique. ds4 Blood collected. Missed attempt(s): 22 gauge in left forearm. Bleeding controlled, band aid applied, catheter tip intact. 21:31 CT Abd/Pelvis - IV Contrast Only In Process Unspecified. EDMS 22:21 Yared Tierney MD is Hospitalizing Provider. kb 04/26 00:30 No provider procedures requiring assistance completed. Patient admitted, IV remains in ea place. 10:34 Transfer initiated with [facility]. Transfer center called back em1 to inform us that they are at capacity and are unable to take this pt. 11:45 Transfer initiated with [facility]. em1 12:50 Called [facility] transfer for an update was informed that pt. is currently on em1 wait list for an available bed. Administered Medications: 04/25 20:30 Drug: morphine 4 mg Route: IVP; Site: right antecubital; ea 21:00 Follow up: Response: No adverse reaction ea 20:30 Drug: Zofran (Ondansetron) 4 mg Route: IVP; Site: right antecubital; ea 21:00 Follow up: Response: No adverse reaction ea 20:30 Drug: NS 0.9% 1000 ml Route: IV; Rate: 1000 ml; Site: right antecubital; ea 21:00 Follow up: IV Status: Completed infusion ea 22:24 Drug: morphine 4 mg Route: IVP; Site: right antecubital; ea 04/26 00:34 Follow up: Response: No adverse reaction ea 04/25 22:24 Drug: Zofran (Ondansetron) 4 mg Route: IVP; Site: right antecubital; ea 04/26 00:34 Follow up: Response: No adverse reaction ea 04/25 22:41 Drug: Zosyn (piperacillin-tazobactam) 3.375 grams Route: IVPB; Infused Over: 60 mins; ea Site: right antecubital; 23:00 Follow up: Response: No adverse reaction ea 04/26 00:34 Follow up: Response: No adverse reaction; IV Status: Completed infusion ea 04/25 22:41 Drug: NS 0.9% 1000 ml Route: IV; Rate: 125 ml/hr; Site: right antecubital; ea 04/26 00:34 Follow up: IV Status: Completed infusion ea Outcome: 04/25 22:22 Decision to Hospitalize by Provider. cade 04/26 00:30 Admitted to ER Hold. Please see [facility] for further documentation. ea Condition: stable Instructed on the need for admit. 15:51 Patient left the ED. ph Signatures: Dispatcher [employer] EDClaudia Taylor, ARIE [employer] BOARD PREASSEMBLER-Judith Iraheta, RN RN sv Jv Samuels em1 Pérez Tucker ds4 Mary Aguirre RN RN ph Garcia, Rubi rg4 Lara Salamanca RN RN ea Davidson, Andrea ad5 Corrections: (The following items were deleted from the chart) 04/25 18:02 17:59 Acuity: VENKATESH 3 sv sv 18:02 18:01 Pulse 103bpm; Resp 16bpm; Pulse Ox 99%; Temp 97.8F; 86.18 kg; Height 5 ft. 9 in.; sv BMI: 28.0; Pain 10/10; sv
--- NOTE | 2021-04-25 22:23 | EDPHYS ---
Physician Documentation [facility] Name: Naif Loza Age: 65 yrs Sex: Male : 1955 Arrival Date: 04/25/2021 Time: 17:51 Bed 14 Private MD: ED Physician Yobany Sandoval HPI: 04/25 22:59 This 65 yrs old Male presents to ER via Ambulatory with complaints of kb Abdominal Pain, Diarrhea. 22:59 The patient presents with abdominal pain that is diffuse. Onset: The symptoms/episode kb began/occurred today. The symptoms do not radiate. Associated signs and symptoms: Pertinent positives: diarrhea, Pertinent negatives: nausea and vomiting, fever. The symptoms are described as constant. Modifying factors: The symptoms are alleviated by nothing, the symptoms are aggravated by pressure. Severity of pain: At its worst the pain was moderate in the emergency department the pain is unchanged. The patient has not experienced similar symptoms in the past. The patient has not recently seen a physician. Historical: - Allergies: 18:00 No Known Allergies; sv - PMHx: 18:00 Anxiety; Cirrhosis; Hernia; sv - Immunization history:: Client reports receiving the 2nd dose of the Covid vaccine, Client reports receiving the 1st dose of the Covid vaccine. - Social history:: Smoking status: Patient denies any tobacco usage or history of. ROS: 22:57 Constitutional: Negative for fever, chills, and weight loss. kb 22:57 Abdomen/GI: Positive for abdominal pain, diarrhea. 22:57 All other systems are negative. Exam: 22:57 Constitutional: This is a well developed, well nourished patient who is awake, alert, kb and in no acute distress. Head/Face: Normocephalic, atraumatic. ENT: Moist Mucous membranes Cardiovascular: Regular rate and rhythm with a normal S1 and S2. No gallops, murmurs, or rubs. No pulse deficits. Respiratory: Respirations even and unlabored. No increased work of breathing, no retractions or nasal flaring. Skin: Warm, dry with normal turgor. Normal color. MS/ Extremity: Pulses equal, no cyanosis. Neurovascular intact. Full, normal range of motion. Neuro: Awake and alert, GCS 15, oriented to person, place, time, and situation. Moves all extremities. Normal gait. Psych: Awake, alert, with orientation to person, place and time. Behavior, mood, and affect are within normal limits. 22:57 Abdomen/GI: Inspection: large hernias, midline surgical scar, Bowel sounds: normal, Palpation: moderate abdominal tenderness, in the left lower quadrant, Hernia: noted in the umbilical area, tenderness, that is mild, that is moderate, Large hernias that are partially reducible.. Vital Signs: 18:01 BP 130 / 69; Pulse 103; Resp 16; Temp 97.8; Pulse Ox 99% ; Weight 86.18 kg; Height 5 sv ft. 9 in. (175.26 cm); Pain 10/10; 20:15 BP 132 / 69; Pulse 93; Resp 18; Pulse Ox 96% ; ea 22:17 BP 131 / 68; Pulse 98; Resp 14 S; Pulse Ox 94% on R/A; ad5 23:00 BP 135 / 68; Pulse 88; Resp 18; Pulse Ox 99% ; ea 18:01 Body Mass Index 28.06 (86.18 kg, 175.26 cm) sv MDM: 19:21 Patient medically screened. kb 22:20 Data reviewed: vital signs, nurses notes. Data interpreted: Pulse oximetry: on room air kb is 94 %. Interpretation: normal. Counseling: I had a detailed discussion with the patient and/or guardian regarding: the historical points, exam findings, and any diagnostic results supporting the discharge/admit diagnosis, lab results, radiology results, the need for further work-up and treatment in the hospital. Physician consultation: Blair Samuels MD was contacted at 22:20, regarding consult, patient's condition, and will see patient in inpatient room. 22:20 Physician consultation: Alen SARGENT was contacted at 22:20, regarding admission, kb to the medical/surgical unit. patient's condition, in the emergency department to see patient at 22:20. 04/25 19:30 Order name: Basic Metabolic Panel; Complete Time: 21:15 kb 04/25 19:30 Order name: CBC with Diff; Complete Time: 21:05 kb 04/25 19:30 Order name: Hepatic Function; Complete Time: 21:15 kb 04/25 19:30 Order name: Lipase; Complete Time: 21:15 kb 04/25 22:03 Order name: Lactate; Complete Time: 22:36 kb 04/25 22:25 Order name: Protime (+inr); Complete Time: 22:57 kb 04/25 20:10 Order name: CT Abd/Pelvis - IV Contrast Only; Complete Time: 22:02 kb 04/25 22:25 Order name: Ptt, Activated; Complete Time: 22:57 kb 04/26 05:03 Order name: CBC with Automated Diff EDMS 04/26 05:10 Order name: Lactate EDMS 04/26 05:19 Order name: Comprehensive Metabolic Panel EDMS 04/26 05:19 Order name: Lipid Profile EDMS 04/26 05:19 Order name: Magnesium EDMS 04/25 19:30 Order name: IV Saline Lock; Complete Time: 20:21 kb 04/25 19:30 Order name: Labs collected and sent; Complete Time: 20:21 kb Administered Medications: 20:30 Drug: morphine 4 mg Route: IVP; Site: right antecubital; ea 21:00 Follow up: Response: No adverse reaction ea 20:30 Drug: Zofran (Ondansetron) 4 mg Route: IVP; Site: right antecubital; ea 21:00 Follow up: Response: No adverse reaction ea 20:30 Drug: NS 0.9% 1000 ml Route: IV; Rate: 1000 ml; Site: right antecubital; ea 21:00 Follow up: IV Status: Completed infusion ea 22:24 Drug: morphine 4 mg Route: IVP; Site: right antecubital; ea 04/26 00:34 Follow up: Response: No adverse reaction ea 04/25 22:24 Drug: Zofran (Ondansetron) 4 mg Route: IVP; Site: right antecubital; ea 04/26 00:34 Follow up: Response: No adverse reaction ea 04/25 22:41 Drug: Zosyn (piperacillin-tazobactam) 3.375 grams Route: IVPB; Infused Over: 60 mins; ea Site: right antecubital; 23:00 Follow up: Response: No adverse reaction ea 04/26 00:34 Follow up: Response: No adverse reaction; IV Status: Completed infusion ea 04/25 22:41 Drug: NS 0.9% 1000 ml Route: IV; Rate: 125 ml/hr; Site: right antecubital; ea 04/26 00:34 Follow up: IV Status: Completed infusion ea Disposition Summary: 04/25/21 22:22 Hospitalization Ordered Hospitalization Status: Inpatient Admission kb Provider: Yared Tierney Condition: Stable kb Problem: new kb Symptoms: are unchanged kb Bed/Room Type: Standard kb Location: [facility] ER HOLD(04/25/21 23:08) cg Room Assignment: ERHOLD-(04/25/21 23:08) cg Diagnosis - Small Bowel Obstruction with evidence of ischemia kb Forms: - Medication Reconciliation Form kb - SBAR form kb Addendum: 04/29/2021 07:33 Co-signature as Attending Physician, Yobany Sandoval MD I agree with the assessment and c desouza plan of care. Signatures: Dispatcher [employer] Claudia Riggs, GILLIAN-C PLASMA SPECIALIST-Judith Iraheta, RN RN Yobany Sandoval MD MD cha Garcia, Cindy RN RN Lara Michaud RN RN ea Corrections: (The following items were deleted from the chart) 04/25 23:08 22:22 Telemetry/MedSurg (Inpatient) [facility] 23:08 22:22 kb
--- NOTE | 2021-04-25 22:48 | P.HP ---
Certification for Inpatient Patient admitted to: Inpatient With expected LOS: >2 Midnights Patient will require the following post-hospital care: None Practitioner: I am a practitioner with admitting privileges, knowledge of patient current condition, hospital course, and medical plan of care. Services: Services provided to patient in accordance with Admission requirements found in Title 42 Section 412.3 of the Code of Federal Regulations Patient History Date of Service: 04/25/21 Reason for admission: Small-bowel obstruction History of Present Illness: 65-year-old male with history of alcoholic cirrhosis of the liver, anxiety, hernia, kidney cancer presents emergency department for abdominal pain and swelling. Patient with history of multiple ventral hernia is, inguinal hernia on the left which he reports have been slightly more distended and painful over the course of the last couple of days. Patient evaluated in the emergency department, labs significant for white blood cell count 11.9 hemoglobin 11.9 GFR 57 glucose 113 T. bili 1.8 d bili 0.7 AST 40 alk-phos 128. CT abdomen pelvis with contrast demonstrates small bowel obstruction is present likely result of large ventral hernia, evidence of small bowel ischemia of the small bowel loops within the large ventral hernia sac. Liver cirrhosis with mild ascites. ED provider discuss case with general surgeon who recommends to make patient NPO, start on Zosyn and he will evaluate in the morning. When I saw the patient in the ER he is awake, alert, oriented x3, in no dis tress, vital signs stable, afebrile does not appear septic. Will admit for further evaluation and management. Allergies No Known Allergies Allergy (Unverified 05/20/16 14:04) Home Medications: Lactulose 15 ml PO BID 04/03/21 Melatonin 1 cap PO BEDTIME 04/03/21 Spironolactone 1 tab PO DAILY 04/03/21 Trazodone HCl 1 tab PO BEDTIME 04/03/21 Hydrocodone 10/APAP 325 [[place] 10/325] 1 tab PO Q12H PRN #30 tab 04/05/21 Mineral Oil 30 ml PO M,W,F PRN #1000 ml 04/05/21 Promethazine Tab [Phenergan] 25 mg PO Q6HP PRN #30 tab 04/05/21 - Past Medical/Surgical History Diabetic: No -: Renal cell carcinoma -: Alcoholic cirrhosis of the liver -: Anxiety -: Ventral hernia/inguinal hernia -: Nephrectomy -: Bowel resection Psychosocial/ Personal History: Disabled, lives at home with his daughter and [id number] - Family History Father -: Heart disease Mother -: Diabetes - Social History Smoking Status: Never smoker Alcohol use: No CD- Drugs: No Caffeine use: Yes Place of Residence: Home Review of Systems 10-point ROS is otherwise unremarkable Gastrointestinal: Nausea, Vomiting, Abdominal Pain, Diarrhea Physical Examination - Physical Exam General: Alert, In no apparent distress, Oriented x3 HEENT: Atraumatic, PERRLA, Mucous membr. moist/pink Neck: Supple, 2+ carotid pulse no bruit, No LAD Respiratory: Clear to auscultation bilaterally, Normal air movement Cardiovascular: Regular rate/rhythm, Normal S1 S2 Gastrointestinal: Hypoactive, Other (Large ventral hernias bilaterally, reducible), Distended, Tenderness (Mild to moderate epigastric tenderness), Masses Musculoskeletal: No tenderness Integumentary: No rashes Neurological: Normal speech, Normal strength at 5/5 x4 extr, Normal tone, Normal affect - Studies Laboratory Data (last 24 hrs) 04/25/21 20:17: WBC 11.90 H, Hgb 11.9 L, Hct 34.5 L, Plt Count 184 04/25/21 20:17: Sodium 137, Potassium 5.1, BUN 24 H, Creatinine 1.26, Glucose 113 H, Total Bilirubin 1.8 H, AST 40 H, ALT 34, Alkaline Phosphatase 128 H, Lipase 41 L Assessment and Plan - Plan Assessment Small-bowel obstruction likely secondary to large ventral hernia Alcoholic cirrhosis of the liver Anxiety History of renal/colon cancer with nephrectomy/resection Plan Small-bowel obstruction likely secondary to large ventral hernia: NPO, IVF, Zosyn, p.r.n. pain medications and antiemetics. NGT to [facility] for worsening abdominal pain, distention, vomiting. General surgery consulted, case was discussed. DVT prophylaxis with SCDs as patient is a possible surgical candidate. Alcoholic cirrhosis of the liver: Stable, patient reports he stop drinking 6-7 months ago. INR pending. Anxiety: Continue home meds when appropriate History of renal/colon cancer with nephrectomy/resection: Stable at this time. Will continue to monitor renal function closely. Discharge Plan: Home Plan to discharge in: Greater than 2 days - Advance Directives Does patient have a Living Will: No Does patient have a Durable POA for Healthcare: No - Code Status/Comfort Care Code Status Assessed: Yes (Full code) Critical Care: No Time Spent Managing Pts Care (In Minutes): 55
[2021-04-25] MEDS ORDERED: PIPERACIL/TAZO 3.375 GM VIAL IV ONE (22:49)
[2021-04-25] MEDS ORDERED: NA CHLORIDE 0.9% 100 ML ONE (22:50)
[2021-04-25 22:54] LABS: Protime INR 1.29
[2021-04-26] MEDS ORDERED: D5 0.45 NS 1,000 ML IV SCH (01:03)
[2021-04-26 02:12] VITALS: BMI 28.0
[2021-04-26] MEDS ORDERED: D5 0.45 NS 1,000 ML IV ONE ×2 (02:42→08:32)
[2021-04-26 05:01] LABS: Absolute Lymphocytes (CBC) 1.3 K/uL (0.7-4.9); Basophils % 0.4 % (0-1.3); Hematocrit 31.4 % (39.6-49.0); Lymphocytes % 12.7 % (15.3-44.8); MPV 7.6 fL (7.6-11.3); RBC Red Blood Cell Count 3.32 M/uL (4.33-5.43)
[2021-04-26 05:11] LABS: Albumin 2.3 g/dL (3.4-5.0); Bilirubin Total 1.6 mg/dL (0.2-1.0); Magnesium 2.1 mg/dL (1.8-2.4); Potassium 4.9 mmol/L (3.5-5.1); Protein, Total 6.5 g/dL (6.4-8.2)
[2021-04-26 06:25] VITALS: BP 142/98; TEMP 98
--- NOTE | 2021-04-26 06:38 | P.PN ---
Subjective Date of Service: 04/26/21 Chief Complaint: Small-bowel obstruction Subjective: Other (feels about the same, with some slight increased nausea, no emesis, no worsening pain or distention, no flatus/no BM yet.) Review of Systems 10-point ROS is otherwise unremarkable Physical Examination - Vital Signs Temperature: 98 F Blood Pressure: 142/98 Pulse: 100 Respirations: 18 Pulse Ox (%): 98 - Physical Exam General: Alert, In no apparent distress, Oriented x3 HEENT: Sclerae nonicteric Respiratory: Clear to auscultation bilaterally, Normal air movement Cardiovascular: No edema, Regular rate/rhythm, Normal S1 S2 Gastrointestinal: Other (large ventral hernia, with palpable intestine, tender) Musculoskeletal: No erythema, No tenderness Integumentary: No breakdown, No significant lesion Neurological: Normal speech, Normal strength at 5/5 x4 extr, Normal affect - Studies Laboratory Data (last 24 hrs) 04/25/21 22:35: PT 14.9 H, INR 1.29, APTT 30.6 04/25/21 20:17: WBC 11.90 H, Hgb 11.9 L, Hct 34.5 L, Plt Count 184 04/25/21 20:17: Sodium 137, Potassium 5.1, BUN 24 H, Creatinine 1.26, Glucose 113 H, Total Bilirubin 1.8 H, AST 40 H, ALT 34, Alkaline Phosphatase 128 H, Lipase 41 L Assessment & Plan Physician Review Additional Text: SBO with signs of ischemia on CT alcoholic cirrhosis nephrectomy (h/o renal cell carcinoma) -General surgery consulted. Discussed with family. Daughters and patient not wanting to sign consent for surgery here, wanting to be transferred to [place] given his past medical history of alcoholic cirrhosis and nephrectomy. Patient's dietitian is in [facility] in [place]. -Transfer initiated -continue anti-emetics, NPO, gentle IVF -low threshold for NGT placement Time Spent Managing Pts Care (In Minutes): 60
[2021-04-26] MEDS ORDERED: PIPERACIL/TAZO 3.375 GM VIAL IV ONE (08:32)
[2021-04-26] MEDS ORDERED: NA CHLORIDE 0.9% 100 ML ONE (08:33)
[2021-04-26] MEDS: ONDANSETRON 4 MG/2 ML VIAL IV PRN ×2 (08:45→15:50)
[2021-04-26] MEDS: MORPHINE 2 MG/ML SYR IV PRN ×2 (08:45→15:50)
[2021-04-26] MEDS ORDERED: ONDANSETRON 4 MG/2 ML VIAL ONE ×2 (08:54→16:02)
[2021-04-26] MEDS ORDERED: MORPHINE 2 MG/ML SYR ONE ×2 (08:54→16:02)
[2021-04-26] MEDS ORDERED: PNEUMOCOCCAL VACCINE 0.5 ML IMVAC ONE (09:00)
[2021-04-26] MEDS ORDERED: PIPER/TAZO/NS 3.375gm 3.375 GM/100 ML BAG IVPB SCH (09:00)
--- NOTE | 2021-04-26 09:48 | CON ---
Date of Consultation: 04/26/2021 Diagnosis: A strangulated incarcerated ventral hernia. History Of Present Illness: This is a case of a 65-year-old patient with history of alcoholic cirrho sis of the liver, anxiety, kidney cancer, bowel resection, who comes to us with a ventral hernia with incarcerated bowel on it and a surgical consult was obtained for surgery since there is a possibilit y of bowel ischemia. Apparently, he has been seen at another institutions. He was in the hospital a lso several weeks ago, but due to the large amount of bowel and the size of the hernia, the hernia cruz rgery was not done and it was declared as difficult and probably impossible to do it due to the medic al issues and the size of the hernia, but this time, he comes with possible ischemia of the bowel and a surgical consult was requested to explain to the patient the risks of the surgery. Obviously, las t time, he was not a best candidate for surgery and he understood that so he did not want to have festus casper done either and this information is obtained from the patient. We also discussed the case with the patient's daughter on the phone trying to get some more information since the patient cannot give any much information. He says this hernia is there for more than 3 years. He cannot explain exactl y what kind of surgeries he had. He has a big midline incision and a gigantic hernia in the abdomen. No history about his previous colonoscopies or his GI workup. No history neither on the level of t he cirrhosis of the liver. Allergies: NONE. Medications: Phenergan, lactulose, melatonin, spironolactone, trazodone, Ponder and mineral oil. Past Medical History: Renal cell carcinoma; alcoholic cirrhosis of the liver; anxiety; chronic ventr al hernia; history of nephrectomy; history of bowel resection, once again unknown why the bowel resec tion. Family History: Heart disease, diabetes. Social History: He does not smoke. He does not drink alcohol anymore. Review of Systems: No shortness of breath. No chest pain. The abdomen is distended. He feels better, although his abd omen is riffler tender and distended. No dysuria, hematuria, hematochezia, melena. Physical Examination: General: The patient is awake, alert. No distress. Eyes: Pupils anicteric. Chest: Clear. Abdomen: Softly distended. Large gigantic hernia present with small bowel content. Midline incisio n from previous laparotomies. Rectal: Deferred. Extremities: Good capillary refill. Laboratory Data: Blood work shows WBC count of 11.9, hemoglobin of 11.9, platelets of 184. INR is 1 .29. Chloride is 109, creatinine is 1.26, total bili of 1.8. CAT scan of the abdomen and pelvis int erpreted by Dr. English as small bowel obstruction is present, largely result of a large ventral hernia. There is evidence of a small bowel ischemia of the small bowel loops within a large ventral hernia sac. Liver cirrhosis with ascites present. As per radiologist, he has some small loops in different hernias one that he believes most likely could be related to ischemia in the ventral region. Assessment: A 65-year-old patient with a large ventral hernias. He was in the past was told by the surgeons that the hernia is too risky to be fixed, that is why he hasn't fixed it yet, but now he com es to the ER with also sign of ischemia. Now, I have a long conversation with him, but he is not abl e to sign a consent yet. He was kind enough to also give us his daughter on the phone trying to expl ain to her the urgency of the situation since the patient is not sure about what he has to do. I dis cussed that with the patient's daughter too, explained to them the benefits and risks explained to th em. She questioned me how come few weeks ago the surgery was not done, but I was not there, I was no t the surgeon and I do not have any documentation of it, but I explained to her that whatever they ex plained to her is still standing. We just added up now the ischemia of the bowel, making this an david rgent situation. I understand how they are hesitant to go for this surgery due to the medical issues and cirrhosis of the liver and I fully understand. explain to them that he may require b owel resection, that the hernia may not be able to be fixed. He has some other hernias that may not be fixed at this time. He may have infection, bleeding, damage to adjacent structures, anesthesia co mplication, hematoma, exsanguination, myocardial infarction and even . They are not ready to si gn a consent yet. She wants to come to the hospital and evaluate the situation and then after that, she will talk to her dad again and then in whenever they are ready, we will be able to proceed. Now, they understand that if the radiologist is true and they believe have pneumatosis, ischem ia may take his life, even though the surgery also is risky and may do so, but the bowel perforation and ischemia will most likely just take his life too. So, I understand the situation and understand how complicated it is. We are awaiting for their approval and then whenever they signed a consent an d feels comfortable, then we will proceed with surgery. The OR will be in standby. CATHY/ISIDRO Voice ID: [id number] Report ID: [id number]
[2021-04-26] MEDS ORDERED: LORazepam 2 MG/ML VIAL IV ONE (11:48)
[2021-04-26] MEDS ORDERED: LORazepam 2 MG/ML VIAL ONE (12:21)
--- NOTE | 2021-04-26 12:21 | P.PN ---
Subjective Date of Service: 04/26/21 Chief Complaint: Small-bowel obstruction Physical Examination - Vital Signs Temperature: 98 F Blood Pressure: 142/98 Pulse: 100 Respirations: 18 Pulse Ox (%): 98 - Studies Laboratory Data (last 24 hrs) 04/25/21 22:35: PT 14.9 H, INR 1.29, APTT 30.6 04/25/21 20:17: WBC 11.90 H, Hgb 11.9 L, Hct 34.5 L, Plt Count 184 04/25/21 20:17: Sodium 137, Potassium 5.1, BUN 24 H, Creatinine 1.26, Glucose 113 H, Total Bilirubin 1.8 H, AST 40 H, ALT 34, Alkaline Phosphatase 128 H, Lipase 41 L
--- NOTE | 2021-04-26 12:54 | PN ---
Addendum: Diagnosis: Small bowel obstruction with ischemia, large ventral hernia, kidney cancer, cirrhosis of the liver. The family including daughter and another family member came in at bedside. We had a long discussion about the pros and cons of surgery. I was able to get a little more information about this patient since the daughter has been aware of the changes that has been happening. He has a hernia doctor in [place], but once again at that moment, they believe the chance of fixing his hernias are more danger ous to his health. That is what has been done. That once again solidify I believe the complex case and we still willing to help understanding the limitations that we might have. The patient's eve r seems to be very receptive. Understand that even though we can do the surgery, we might not be abl e to handle his medical issues that including heart disease, his lungs, his only 1 kidney and his cir rhosis of the liver and I understand her idea. She really wants this patient to be done in a [facility] ter and I agree with her. the patient is medically stable like he is at this moment, then this is a chance to do so. May not be medically stable for too long if this is really ischemia of t he bowel, but at least at this specific moment, yes I believe, it will be trying to comply with her and the patient's wishes. I informed Dr. Davis who is the right now ER the physician in charge about the patient wishes of having to transfer and they are looking at all the options we have at this moment understanding that time is of essence since the more we wait, then we may have the ca se to be a little bit more difficult to solve. CATHY/MODL Voice ID: [id number] Report ID: [id number]
[2021-04-26 16:11] VITALS: O2SAT 99
--- NOTE | 2021-04-26 20:30 | P.DS ---
Admission Date: 04/25/21 Discharge Date: 04/26/21 Disposition: TRANSFER TO [facility] Discharge Condition: FAIR Reason for Admission: Small-bowel obstruction Consultations: General Surgery - Dr. Blair Samuels Procedures: CT Abd/pelvis (04/25) All CT scans are performed using dose optimization technique as appropriate and may include automated exposure control or mA/KV adjustment according to patient size. FINDINGS: The lung bases are clear. Liver cirrhosis pattern is seen with multiple linear areas diminished density capsular retraction present. The spleen is mildly enlarged. The pancreas and adrenal glands are normal. Right kidney demonstrate no hydronephrosis. Left kidney appears absent. Large ventral hernia is present containing multiple dilated small bowel loops. Pneumatosis is likely present within the dilated small bowel loop in the ventral hernia. Mild ascites is noted. Large right inguinal hernia containing ascites. No free intraperitoneal air. No evidence of significant lymphadenopathy. Mild lumbar degenerative changes. IMPRESSION: Small bowel obstruction is present likely result of large ventral hernia. There is evidence of small bowel ischemia of the small bowel loops within the large ventral hernia sac. Liver cirrhosis with mild ascites. Problem List Small-bowel obstruction secondary to large ventral hernia Alcoholic cirrhosis of the liver Anxiety History of renal/colon cancer with nephrectomy/resection Brief History of Present Illness: 65-year-old male with history of alcoholic cirrhosis of the liver, anxiety, hernia, kidney cancer presents emergency department for abdominal pain and swelling. Patient with history of multiple ventral hernia is, inguinal hernia on the left which he reports have been slightly more distended and painful over the course of the last couple of days. Patient evaluated in the emergency department, labs significant for white blood cell count 11.9 hemoglobin 11.9 GFR 57 glucose 113 T. bili 1.8 d bili 0.7 AST 40 alk-phos 128. CT abdomen pelvis with contrast demonstrates small bowel obstruction is present likely result of large ventral hernia, evidence of small bowel ischemia of the small bowel loops within the large ventral hernia sac. Liver cirrhosis with mild ascites. ED provider discuss case with general surgeon who recommends to make patient NPO, start on Zosyn and he will evaluate in the morning. Hospital Course: Patient was managed medically. General surgery was consulted, evaluated the pa tient and discussed with family. Patient and family ultimately decided they would like for the patient to be transferred to a tertiary care center where a investigative writer and other specialist services would be available to help care for the patient if needed during the perioperative. Transfer was initiated, patient was accepted and transferred to [facility]. Vital Signs/Physical Exam: Temp Pulse Resp BP Pulse Ox 98 F 100 H 18 142/98 H 98 04/26/21 20:25 04/26/21 20:25 04/26/21 20:25 04/26/21 20:25 04/26/21 20:25 Laboratory Data at Discharge: WBC 10.10 K/uL (4.3-10.9) D 04/26/21 04:35 Hgb 10.6 g/dL (13.6-17.9) L 04/26/21 04:35 Hct 31.4 % (39.6-49.0) L 04/26/21 04:35 Plt Count 160 K/uL (152-406) 04/26/21 04:35 PT 14.9 SECONDS (9.5-12.5) H 04/25/21 22:35 INR 1.29 04/25/21 22:35 APTT 30.6 SECONDS (24.3-36.9) 04/25/21 22:35 Sodium 138 mmol/L (136-145) 04/26/21 04:35 Potassium 4.9 mmol/L (3.5-5.1) 04/26/21 04:35 BUN 23 mg/dL (7-18) H 04/26/21 04:35 Creatinine 1.09 mg/dL (0.55-1.3) 04/26/21 04:35 Glucose 99 mg/dL (74-106) 04/26/21 04:35 Magnesium 2.1 mg/dL (1.8-2.4) 04/26/21 04:35 Total Bilirubin 1.6 mg/dL (0.2-1.0) H 04/26/21 04:35 AST 36 U/L (15-37) 04/26/21 04:35 ALT 30 U/L (12-78) 04/26/21 04:35 Alkaline Phosphatase 108 U/L (45-117) 04/26/21 04:35 Triglycerides 63 mg/dL (<150) 04/26/21 04:35 Cholesterol 88 mg/dL (<200) 04/26/21 04:35 HDL Cholesterol mg/dL (40-60) 04/26/21 04:35 Cholesterol/HDL Ratio 29.30 04/26/21 04:35 Lipase 41 U/L (73-393) L 04/25/21 20:17 Home Medications: Lactulose 15 ml PO BID 04/03/21 Melatonin 1 cap PO BEDTIME 04/03/21 Spironolactone 1 tab PO DAILY 04/03/21 Trazodone HCl 1 tab PO BEDTIME 04/03/21 Hydrocodone 10/APAP 325 [Barnard 10/325] 1 tab PO Q12H PRN #30 tab 04/05/21 Mineral Oil 30 ml PO M,W,F PRN #1000 ml 04/05/21 Promethazine Tab [Phenergan] 25 mg PO Q6HP PRN #30 tab 04/05/21 Followup: Timothy Lucas MD [Primary Care Provider] - Time spent managing pt's care (in minutes): 45
== END 2021-04-26 16:00 | disposition short-term general hospital (02) | DRG 395 ==
LOC: ER 17:48 → ERHOLD 22:36
PROVIDERS: ADMIT Hospitalist; ATTEND Hospitalist
DX: K43.6 Other and unspecified ventral hernia with obstruction, without gangrene (principal); K70.31 Alcoholic cirrhosis of liver with ascites; F41.9 Anxiety disorder, unspecified; Z90.5 Acquired absence of kidney; Z85.038 Personal history of other malignant neoplasm of large intestine; Z85.528 Personal history of other malignant neoplasm of kidney
CPT/HCPCS: 36415; 74177; 80048; 80053; 80061; 80076; 83605; 83690; 83735; 85025; 85610; 85730; 96365; 96366; 96375; 99285; J2270; J2405; J2543; J7030; J7799; Q9967

== ENCOUNTER 2021-11-16 13:48 | Emergency (ER) | payer OTHER ==
--- OUTSIDE RECORDS SUMMARY | 2021-11-16 13:51 | XMS REPORT | Continuity of Care Document ---
:1955 Author Organization [facility] t Address [address] [place] [address] Care Team Providers Name Role Phone ADA Attending Clinician Unavailable Lindsey CANAS Attending Clinician Unavailable YOVANI CANAS Attending Clinician Unavailable JEZ Attending Clinician Unavailable BYRON CORRALES Attending Clinician Unavailable KILEY ANDERSON Admitting Clinician Unavailable Payers Payer Name Policy Type Policy Number Effective Date Expiration Date Lindsey aguirre MEDICARE PART A [id number] 2021 AND B 00:00:00 Problems This patient has no known problems. Allergies, Adverse Reactions, Alerts This patient has no known allergies or adverse reactions. Social History Social Habit Start Date Stop Date Quantity Comments Source Sex Assigned [birth year] [facility] 00:00:00 00:00:00 Smoking Status Start Date Stop Date Source Tobacco smoking consumption unknown [facility] Medications This patient has no known medications. Procedures This patient has no known procedures. Encounters Start End Encounter Admission Attending Care Care Encounter Source Date/Time Date/Time Type Type Clinicians Facility Department ID 2021-07-23 Outpatient ADA [facility] [id number] [facility] 12:12:03 TUGRUL 2021-05-30 Outpatient JAYDE CANAS [facility] [id number] [place] 01:04:13 Health 2021-04-05 Outpatient ADA [facility] [id number] [facility] 11:08:22 TUGRUL 2021-06-11 2021-06-11 [id number] [facility] 09:43:00 23:59:00 2021-06-10 2021-06-10 EXT [facility] OP Jayde Canas EXT [facility] [id number] [place] 00:00:00 00:00:00 S LOCATION [id number] H ealth [id number] 2021-05-24 2021-05-24 [facility] [id number] [facility] 14:28:00 23:59:00 2021-05-23 2021-05-23 EXT [facility] OP Jayde Canas EXT MSRDP [id number] [place] 00:00:00 00:00:00 S LOCATION [id number] H ealth [id number] 2021-05-14 2021-05-14 [facility] [id number] [facility] 14:20:00 23:59:00 2021-05-13 2021-05-13 EXT [facility] OP Jayde Canas EXT MSRDP [id number] [place] 00:00:00 00:00:00 S LOCATION [id number] H ealth [id number] 2021-04-26 2021-05-10 [facility] [id number] [facility] 17:07:00 13:45:00 DAYANARA 2021-01-07 2021-01-07 Out[facility] ADA[facility] [id number] [facility] 09:00:00 23:59:00 TUGRU 2020-10-22 2020-10-22 Outpatient PURARIS[facility] [id number] [facility] 12:51:00 16:08:00 TUGRU 2020-10-15 2020-10-15 Outpatient PURNAK, [facility] [id number] [facility] 10:51:00 23:59:00 MYRIAM 2020-09-24 2020-09-24 Emergency E SAVANNA [facility] [id number] [facility] 15:26:00 21:26:00 TIARA Results This patient has no known results.
[2021-11-16 15:14] LABS: Absolute Lymphocytes (CBC) 1.1 K/uL (0.7-4.9); Lymphocytes % 22.4 % (15.3-44.8); MPV 7.4 fL (7.6-11.3); Protime INR 1.14; RBC Red Blood Cell Count 3.72 M/uL (4.33-5.43)
[2021-11-16 15:17] LABS: Urine Blood Negative (Negative); Urine Glucose Negative (Negative); Urine Protein Negative (Negative); Urine pH 6.5 (5.0-7.0)
[2021-11-16] MEDS ORDERED: MORPHINE 2 MG/ML SYR ONE (15:20)
[2021-11-16] MEDS ORDERED: ONDANSETRON 4 MG/2 ML VIAL ONE (15:20)
[2021-11-16 15:35] LABS: Albumin 2.2 g/dL (3.4-5.0); Bilirubin Direct 0.5 mg/dL (0-0.2); Bilirubin Total 1.3 mg/dL (0.2-1.0); Magnesium 2.3 mg/dL (1.8-2.4); Potassium 3.8 mmol/L (3.5-5.1); Protein, Total 6.3 g/dL (6.4-8.2); Troponin High Sensitivity 8.7 pg/mL (<58.9)
[2021-11-16 15:57] LABS: Blood Morphology Comment NOT SEEN (NOT SEEN); Platelet Estimate ADEQ; Polychromasia SLIGHT
--- NOTE | 2021-11-16 16:07 | RAD REPORT ---
EXAM DESCRIPTION: Gina Single View11/16/2021 3:55 pm CLINICAL HISTORY: Cough COMPARISON: 2020 FINDINGS: The lungs appear clear of acute infiltrate. The heart is normal size IMPRESSION: No acute abnormalities displayed
--- NOTE | 2021-11-16 16:30 | RAD REPORT ---
EXAM DESCRIPTION: CT - Abdomen Pelvis W Contrast - 11/16/2021 3:40 pm CLINICAL HISTORY: Abdominal pain COMPARISON: none. TECHNIQUE: Computed axial tomography of the abdomen pelvis was obtained. 100 cc Isovue-300 was admin istered intravenously. Oral contrast was not requested which limits evaluation of bowel. All CT scans are performed using dose optimization technique as appropriate and may include automated exposure control or mA/KV adjustment according to patient size. FINDINGS: A cirrhotic liver. Low-density areas within the liver likely fibrosis. Paraesophageal vari reed. Mild splenomegaly Pancreas , adrenals and right kidney unremarkable. Left kidney is absent There is no evidence of diverticulitis. Moderate amount of ascites within the abdomen and pelvis. Large amount of ascites extends into a righ t inguinal hernia. Small umbilical hernia contains ascites IMPRESSION: Cirrhosis with mild splenomegaly Ascites
--- NOTE | 2021-11-16 16:37 | EDPHYS ---
Physician Documentation [facility] Name: Naif Loza Age: 65 yrs Sex: Male : 1955 Arrival Date: 11/16/2021 Time: 13:50 Bed 6 Private MD: CAROL Physician Yobany Sandoval HPI: 11/16 14:38 This 65 yrs old Male presents to ER via Ambulatory with complaints of kyra Testicular Swelling, Abdominal Pain. 14:38 The patient presents with swelling, that is moderate, of the left testicle and right kyra testicle. Onset: The symptoms/episode began/occurred 10 day(s) ago. Modifying factors: The symptoms are alleviated by remaining still, the symptoms are aggravated by pressure. Associated signs and symptoms: The patient has no apparent associated signs or symptoms. Severity of symptoms: At their worst the symptoms were mild, moderate, in the emergency department the symptoms have improved, moderately. The patient has experienced similar episodes in the past, multiple times. Historical: - Allergies: 14:00 No Known Allergies; vg1 - Home Meds: 14:00 lactulose 10 gram/15 mL Oral soln 15 mL twice a day [Active]; Furosemide Oral [Active]; vg1 Spironolactone Oral [Active]; - PMHx: 14:00 Anxiety; Cirrhosis; Hernia; vg1 - PSHx: 14:00 Hernia Repair; vg1 - Immunization history:: Client reports receiving the 2nd dose of the Covid vaccine. - Social history:: Smoking status: Patient denies any tobacco usage or history of. Patient/guardian denies using alcohol. ROS: 14:39 Constitutional: Negative for fever, chills, and weight loss, Eyes: Negative for injury, kyra pain, redness, and discharge, ENT: Negative for injury, pain, and discharge, Neck: Negative for injury, pain, and swelling, Cardiovascular: Negative for chest pain, palpitations, and edema, Respiratory: Negative for shortness of breath, cough, wheezing, and pleuritic chest pain, Abdomen/GI: Negative for abdominal pain, nausea, vomiting, diarrhea, and constipation, Back: Negative for injury and pain, Skin: Negative for injury, rash, and discoloration, Neuro: Negative for headache, weakness, numbness, tingling, and seizure, Psych: Negative for depression, anxiety, suicide ideation, homicidal ideation, and hallucinations, Allergy/Immunology: Negative for hives, rash, and allergies, Endocrine: Negative for neck swelling, polydipsia, polyuria, polyphagia, and marked weight changes, Hematologic/Lymphatic: Negative for swollen nodes, abnormal bleeding, and unusual bruising. 14:39 : Positive for of the groin. Exam: 14:39 Constitutional: This is a well developed, well nourished patient who is awake, alert, kyra and in no acute distress. Head/Face: Normocephalic, atraumatic. Eyes: Pupils equal round and reactive to light, extra-ocular motions intact. Lids and lashes normal. Conjunctiva and sclera are non-icteric and not injected. Cornea within normal limits. Periorbital areas with no swelling, redness, or edema. ENT: Nares patent. No nasal discharge, no septal abnormalities noted. Tympanic membranes are normal and external auditory canals are clear. Oropharynx with no redness, swelling, or masses, exudates, or evidence of obstruction, uvula midline. Mucous membranes moist. Neck: Trachea midline, no thyromegaly or masses palpated, and no cervical lymphadenopathy. Supple, full range of motion without nuchal rigidity, or vertebral point tenderness. No Meningismus. Chest/axilla: Normal chest wall appearance and motion. Nontender with no deformity. No lesions are appreciated. Cardiovascular: Regular rate and rhythm with a normal S1 and S2. No gallops, murmurs, or rubs. Normal PMI, no JVD. No pulse deficits. Respiratory: Lungs have equal breath sounds bilaterally, clear to auscultation and percussion. No rales, rhonchi or wheezes noted. No increased work of breathing, no retractions or nasal flaring. Abdomen/GI: Soft, non-tender, with normal bowel sounds. No distension or tympany. No guarding or rebound. No evidence of tenderness throughout. Back: No spinal tenderness. No costovertebral tenderness. Full range of motion. Skin: Warm, dry with normal turgor. Normal color with no rashes, no lesions, and no evidence of cellulitis. MS/ Extremity: Pulses equal, no cyanosis. Neurovascular intact. Full, normal range of motion. Neuro: Awake and alert, GCS 15, oriented to person, place, time, and situation. Cranial nerves II-XII grossly intact. Motor strength 5/5 in all extremities. Sensory grossly intact. Cerebellar exam normal. Normal gait. Psych: Awake, alert, with orientation to person, place and time. Behavior, mood, and affect are within normal limits. 14:39 : CVA tenderness, is absent, Male external genitalia: swelling, scrotal. Vital Signs: 13:58 BP 109 / 76; Pulse 85; Resp 16; Temp 98.6(O); Pulse Ox 95% ; Weight 77.11 kg; Height 5 vg1 ft. 8 in. (172.72 cm); Pain 10/10; 15:00 BP 132 / 74; Pulse 70; Resp 15; Pulse Ox 95% ; Pain 10/10; jl7 13:58 Body Mass Index 25.85 (77.11 kg, 172.72 cm) vg1 MDM: 14:28 Patient medically screened. kyra 16:38 Differential diagnosis: nonspecific abdominal pain, urinary retention, non-specific abd kyra pain, Testicular Torsion. Data reviewed: vital signs, nurses notes, lab test result(s), EKG, radiologic studies, CT scan, plain films. Data interpreted: campus monitor: rate is 70 beats/min, rhythm is regular, Pulse oximetry: is not applicable for this patient encounter. on room air is 95 %. Test interpretation: by ED physician or midlevel provider: ECG, plain radiologic studies. Counseling: I had a detailed discussion with the patient and/or guardian regarding: the historical points, exam findings, and any diagnostic results supporting the discharge/admit diagnosis, lab results, radiology results, the need for outpatient follow up, for definitive care, a family practitioner, a general surgeon, a heater helper forge. 11/16 14:37 Order name: Basic Metabolic Panel; Complete Time: 15:45 11/16 14:37 Order name: CBC with Diff; Complete Time: 16:37 11/16 14:37 Order name: LFT's; Complete Time: 15:45 11/16 14:37 Order name: Magnesium; Complete Time: 15:45 11/16 14:37 Order name: NT PRO-BNP; Complete Time: 15:45 11/16 14:37 Order name: PT-INR; Complete Time: 15:45 11/16 14:37 Order name: Troponin HS; Complete Time: 15:45 11/16 14:37 Order name: XRAY Chest (1 view); Complete Time: 16:37 [facility] 11/16 14:37 Order name: CT Abd/Pelvis - IV Contrast Only; Complete Time: 16:37 [facility] 11/16 15:15 Order name: Manual Differential; Complete Time: 16:37 [facility] 11/16 15:16 Order name: Urine Dipstick-Ancillary; Complete Time: 15:45 [facility]TN 11/16 14:37 Order name: EKG; Complete Time: 14:38 [facility] 11/16 14:37 Order name: Cardiac monitoring; Complete Time: 15:12 [facility] 11/16 14:37 Order name: EKG - Nurse/Tech; Complete Time: 15:20 [facility] 11/16 14:37 Order name: IV Saline Lock; Complete Time: 15:07 [facility] 11/16 14:37 Order name: Labs collected and sent; Complete Time: 15:07 [facility] 11/16 14:37 Order name: O2 Per Protocol; Complete Time: 15:07 [facility] 11/16 14:37 Order name: O2 Sat Monitoring; Complete Time: 15:07 [facility] 11/16 14:38 Order name: Urine Dipstick-Ancillary (obtain specimen); Complete Time: 15:20 [facility] Administered Medications: 15:20 Drug: morphine 2 mg Route: IVP; Site: right antecubital; jl7 16:51 Follow up: Response: No adverse reaction jl7 15:20 Drug: Zofran (Ondansetron) 4 mg Route: IVP; Site: right antecubital; jl7 16:51 Follow up: Response: No adverse reaction jl7 16:51 Not Given (Other Intervention Used): NS 0.9% 1000 ml IV at 125 ml/hr continuous jl7 Disposition Summary: 11/16/21 16:37 Discharge Ordered Location: Home kyra Problem: new kyra Symptoms: have improved kyra Condition: Stable kyra Diagnosis - Unilateral inguinal hernia, without obstruction or gangrene, recurrent kyra - Unspecified cirrhosis of liver kyra - Other ascites kyra - Splenomegaly, not elsewhere classified kyra Followup: kyra - With: Private Physician - When: 2 - 3 days - Reason: Recheck today's complaints, Continuance of care, Re-evaluation by your physician Followup: kyra - With: - When: 2 - 3 days - Reason: Recheck today's complaints, Re-evaluation by your physician Followup: kyra - With: Mirta Harrington MD - When: 2 - 3 days - Reason: Recheck today's complaints, Continuance of care, Re-evaluation by your physician Discharge Instructions: - Discharge Summary Sheet kyra - Ascites kyra - Cirrhosis kyra - Hernia, Adult kyra - Inguinal Hernia, Adult, [id number] kyra - Hernia, Adult, [id number] kyra - Inguinal Hernia, Adult kyra Forms: - Medication Reconciliation Form kyra - Thank You Letter kyra - Antibiotic Education [facility] - Prescription Opioid Use [facility] Prescriptions: - dicyclomine 20 mg Oral Tablet - take 1 tablet by ORAL route 4 times per day; 28 tablet; Refills: 0, Product [facility] Selection Permitted - Tylenol-Codeine #3 300 mg-30 mg Oral - take 1 tablet by ORAL route every 4-6 hours; 15 tablet; Refills: 0, Product [facility] Selection Permitted Signatures: Dispatcher [employer] Yobany Burnette MD MD cha Leal, Jahala, RN RN jl7 Ingrid Reyna RN RN vg1
--- NOTE | 2021-11-16 16:37 | ER ---
Nurse's Notes [facility] Name: Naif Loza Age: 65 yrs Sex: Male : 1955 Arrival Date: 11/16/2021 Time: 13:50 Bed 6 Private MD: Diagnosis: Unilateral inguinal hernia, without obstruction or gangrene, recurrent;Unspecified cirrhosis of liver;Other ascites;Splenomegaly, not elsewhere classified Presentation: 11/16 13:58 Chief complaint: Patient states: Right testicle swelling x 1 week. states is now having vg1 trouble urinating, denies burning upon urination or blood in the urine. Coronavirus screen: Vaccine status: Patient reports receiving the 2nd dose of the covid vaccine. Client denies travel out of the [place] in the last 14 days. Ebola Screen: Patient negative for fever greater than or equal to 101.5 degrees Fahrenheit, and additional compatible Ebola Virus Disease symptoms. Initial Sepsis Screen: Does the patient meet any 2 criteria? No. Patient's initial sepsis screen is negative. Does the patient have a suspected source of infection? No. Patient's initial sepsis screen is negative. Risk Assessment: Do you want to hurt yourself or someone else? Patient reports no desire to harm self or others. Onset of symptoms was November 09, 2021. 13:58 Method Of Arrival: Ambulatory vg1 13:58 Acuity: VENKATESH 3 vg1 Triage Assessment: 14:00 General: Appears uncomfortable, Behavior is calm, cooperative. Pain: Complains of pain vg1 in groin Pain currently is 10 out of 10 on a pain scale. GI: Abdomen is round. : Reports inability to void, Denies burning with urination. Historical: - Allergies: 14:00 No Known Allergies; vg1 - Home Meds: 14:00 lactulose 10 gram/15 mL Oral soln 15 mL twice a day [Active]; Furosemide Oral [Active]; vg1 Spironolactone Oral [Active]; - PMHx: 14:00 Anxiety; Cirrhosis; Hernia; vg1 - PSHx: 14:00 Hernia Repair; vg1 - Immunization history:: Client reports receiving the 2nd dose of the Covid vaccine. - Social history:: Smoking status: Patient denies any tobacco usage or history of. Patient/guardian denies using alcohol. Screenin:00 Abuse screen: Denies threats or abuse. Denies injuries from another. Nutritional jl7 screening: No deficits noted. Tuberculosis screening: No symptoms or risk factors identified. Fall Risk IV access (20 points). Total Casiano Fall Scale indicates No Risk (0-24 pts). Assessment: 14:15 General: Appears in no apparent distress. uncomfortable, Behavior is calm, cooperative, jl7 appropriate for age. Pain: Complains of pain in pelvis Pain currently is 10 out of 10 on a pain scale. Neuro: Level of Consciousness is awake, alert, obeys commands, Oriented to person, place, time, situation. Cardiovascular: Patient's skin is warm and dry. Respiratory: Airway is patent Respiratory effort is even, unlabored, Respiratory pattern is regular, symmetrical. : Reports right testicular swelling x 4 days. Derm: Skin is pink, warm \T\ dry. 15:25 Reassessment: Pt requesting pain medication, ERD notified, VO for 2 mg Morphine IVP and jl7 4 mg Zofran IVP, pt medicated as ordered. Vital Signs: 13:58 BP 109 / 76; Pulse 85; Resp 16; Temp 98.6(O); Pulse Ox 95% ; Weight 77.11 kg; Height 5 vg1 ft. 8 in. (172.72 cm); Pain 10/10; 15:00 BP 132 / 74; Pulse 70; Resp 15; Pulse Ox 95% ; Pain 10/10; jl7 13:58 Body Mass Index 25.85 (77.11 kg, 172.72 cm) vg1 ED Course: 13:50 Patient arrived in ED. rg4 14:00 Triage completed. vg1 14:00 Arm band placed on. vg1 14:28 Yobany Sandoval MD is Attending Physician. [facility] 14:35 Mariah Brunner RN is Primary Nurse. jl7 15:00 Patient has correct armband on for positive identification. Bed in low position. Call jl7 light in reach. Side rails up X 1. residential monitor on. Pulse ox on. NIBP on. Warm blanket given. 15:00 Initial lab(s) drawn, by me, sent to lab. Urine collected: clean catch specimen, clear. jl7 Inserted saline lock: 20 gauge in right antecubital area, using aseptic technique. Blood collected. 15:24 EKG done, by ED staff, reviewed by Yobany Sandoval MD. [facility] 15:40 CT Abd/Pelvis - IV Contrast Only In Process Unspecified. EDMS 15:55 XRAY Chest (1 view) In Process Unspecified. EDMS 16:36 Yan Ang MD is Referral Physician. [facility] 16:41 Mirta Harrington MD is Referral Physician. [facility] 16:52 No provider procedures requiring assistance completed. IV discontinued, intact, jl7 bleeding controlled, No redness/swelling at site. Pressure dressing applied. Administered Medications: 15:20 Drug: morphine 2 mg Route: IVP; Site: right antecubital; jl7 16:51 Follow up: Response: No adverse reaction jl7 15:20 Drug: Zofran (Ondansetron) 4 mg Route: IVP; Site: right antecubital; jl7 16:51 Follow up: Response: No adverse reaction jl7 16:51 Not Given (Other Intervention Used): NS 0.9% 1000 ml IV at 125 ml/hr continuous jl7 Outcome: 16:37 Discharge ordered by . [facility] 16:52 Discharged to home ambulatory. jl7 16:52 Condition: stable 16:52 Discharge instructions given to patient, Instructed on discharge instructions, follow up and referral plans. medication usage, Demonstrated understanding of instructions, follow-up care, medications, Prescriptions given X 2. 16:54 Patient left the ED. jl7 Signatures: Dispatcher [employer] Yobany Burnetet MD MD cha Garcia, Rubi 4 Maraih Brunner, RN RN jl7 Katie Malcolm [facility] Ingrid Reyna, RN RN vg1
[2021-11-16 17:02] VITALS: TEMP 98.6; O2SAT 95
[2021-11-16 17:03] VITALS: BP 132/74
== END 2021-11-16 16:54 | disposition home or self-care (01) ==
LOC: ER 13:48
DX: K40.90 Unilateral inguinal hernia, without obstruction or gangrene, not specified as recurrent (principal); K74.60 Unspecified cirrhosis of liver; R18.8 Other ascites; R16.1 Splenomegaly, not elsewhere classified; F41.9 Anxiety disorder, unspecified
CPT/HCPCS: 93005; 85025; 80048; 36415; 83735; 85610; 82565; 80076; 81003; 84484; 83880; 74177; 71045; 96375; 96374; 99284; Q9967; J2270; J2405

== ENCOUNTER 2022-04-24 11:50 | Emergency (ER) | payer OTHER ==
--- NOTE | 2022-04-24 13:14 | RAD REPORT ---
EXAM DESCRIPTION: Gina Single View04/24/2022 1:02 pm CLINICAL HISTORY: Alteration consciousness COMPARISON: October 2021 FINDINGS: The lungs appear clear of acute infiltrate. The heart is normal size IMPRESSION: No acute abnormalities displayed
[2022-04-24 15:41] LABS: Absolute Lymphocytes (CBC) 0.9 K/uL (0.7-4.9); Hematocrit 43.1 % (39.6-49.0); Lymphocytes % 12.7 % (15.3-44.8); MCV 96.5 fL (80-100); MPV 8.4 fL (7.6-11.3); RBC Red Blood Cell Count 4.46 M/uL (4.33-5.43)
[2022-04-24 15:54] LABS: Protime INR 1.11
[2022-04-24 16:08] LABS: Albumin 3.6 g/dL (3.4-5.0); Bilirubin Direct 0.6 mg/dL (0-0.2); Bilirubin Total 1.7 mg/dL (0.2-1.0); Magnesium 2.4 mg/dL (1.8-2.4); Protein, Total 8.1 g/dL (6.4-8.2); Troponin High Sensitivity 8.6 pg/mL (<58.9)
[2022-04-24] MEDS ORDERED: LACTULOSE 20 GM/30 ML UCUP ONE (16:18)
[2022-04-24] MEDS ORDERED: NA CHLORIDE 0.9% 500 ML ONE (16:21)
--- NOTE | 2022-04-24 17:42 | RAD REPORT ---
EXAM DESCRIPTION: CT - Head Brain Wo Cont - 04/24/2022 5:29 pm CLINICAL HISTORY: Alteration of awareness/confusion COMPARISON: None TECHNIQUE: Computed axial tomography of the head was obtained. IV contrast was not requested. All CT scans are performed using dose optimization technique as appropriate and may include automated exposure control or mA/KV adjustment according to patient size. FINDINGS: An intracranial bleed is not seen . The ventricles are normal in caliber. No extra-axial fluid collection is noted. Mild low-density areas within periventricular, deep and subcortical white matter likely represent isc hemic changes secondary to small vessel disease. Fluid within the sinuses/ mastoids is not seen. IMPRESSION: No acute intracranial abnormality is seen. If patient's symptoms persist MRI of the bra in would be recommended.
[2022-04-24 17:48] LABS: Urine Blood Negative (Negative); Urine Glucose Negative (Negative); Urine Protein 1+ (Negative); Urine Specific Gravity 1.025 (1.005-1.030)
--- NOTE | 2022-04-24 19:06 | RAD REPORT ---
EXAM DESCRIPTION: US - Abdomen Exam Limited - 04/24/2022 6:03 pm CLINICAL HISTORY: Abdominal pain. COMPARISON: 2016 FINDINGS: A gallstone is not seen. Mild to moderate gallbladder wall thickening. Borderline dilatation common bile duct. It is without significant change prior exam. IMPRESSION: Mild to moderate gallbladder wall thickening probably related to hypoalbuminemia. Acalcu lous cholecystitis can also have this appearance and should be correlated clinically Borderline dilatation of common bile duct. Given that it is without significant change since 2016 it probably is not significant. However, this also should correlated clinically and with appropriate lab values
--- NOTE | 2022-04-24 19:21 | EDPHYS ---
Physician Documentation [facility] Name: Naif Loza Age: 66 yrs Sex: Male : 1955 Arrival Date: 04/24/2022 Time: 11:52 Bed 10 Private MD: ED Physician Donte Delatorre HPI: 04/24 12:20 This 66 yrs old Male presents to ER via Ambulatory with complaints of Confusion. jmm 12:20 The patient presents with confusion, decreased mental status, disorientation, to time. jmm Onset: The symptoms/episode began/occurred gradually, this morning. Possible causes: unknown. Associated signs and symptoms: Pertinent negatives: chest pain, shortness of breath. Current symptoms: In the emergency department the patient's symptoms are unchanged from the initial presentation. It is unknown whether or not the patient has had similar symptoms in the past. Historical: - Allergies: 12:23 No Known Allergies; vg1 - Home Meds: 12:23 Xifaxan oral [Active]; Spironolactone Oral [Active]; lactulose 10 gram/15 mL Oral soln vg1 15 mL twice a day [Active]; Furosemide Oral [Active]; - PMHx: 12:23 Anxiety; Cirrhosis; Hernia; vg1 - PSHx: 12:23 hernia repair; vg1 - Immunization history:: Client reports receiving the 2nd dose of the Covid vaccine. - Social history:: Smoking status: Patient denies any tobacco usage or history of. ROS: 12:20 Constitutional: Negative for fever, chills, and weight loss, Cardiovascular: Negative jmm for chest pain, palpitations, and edema, Respiratory: Negative for shortness of breath, cough, wheezing, and pleuritic chest pain. 12:20 Neuro: Positive for altered mental status, weakness. 12:20 All other systems are negative. Exam: 12:20 Head/Face: atraumatic. Eyes: EOMI, no conjunctival erythema appreciated ENT: Moist jmm Mucus Membranes Neck: Trachea midline, Supple Chest/axilla: Normal chest wall appearance and motion. 12:20 Abdomen/GI: Non distended Back: Normal ROM Skin: General appearance color normal 12:20 Constitutional: The patient appears in no acute distress. 12:20 Cardiovascular: Rate: normal, Rhythm: regular. 12:20 Respiratory: the patient does not display signs of respiratory distress, Respirations: normal, Breath sounds: are clear throughout. 12:20 Musculoskeletal/extremity: ROM: intact in all extremities. 12:20 Skin: Appearance: Color: normal in color. 12:20 Neuro: Orientation: is normal, Mentation: is normal, Memory: is normal. 12:20 Psych: Behavior/mood is pleasant, cooperative. Vital Signs: 12:18 BP 119 / 69; Pulse 89; Resp 16; Temp 98.5; Pulse Ox 98% on R/A; Weight 74.84 kg; vg1 17:06 BP 117 / 70; Pulse 70; Resp 16; Pulse Ox 97% on R/A; Pain 0/10; ss 19:14 BP 124 / 75; Pulse 78; Resp 20; Pulse Ox 99% on R/A; bh1 MDM: 12:20 Patient medically screened. [facility] 19:18 Data reviewed: vital signs, nurses notes. Counseling: I had a detailed discussion with gregg the patient and/or guardian regarding: the historical points, exam findings, and any diagnostic results supporting the discharge/admit diagnosis, lab results, radiology results, the need for further work-up and treatment in the hospital. Refusal of service: The patient/guardian displays adequate decision making capability and despite a detailed discussion of alternatives, benefits, risks, and consequences refuses: Admission to the hospital for further work-up and treatment. ED course: Patient is currently a x o x 3, refuses admission for observation. Patient has no abdominal pain on physical exam. US most likely due to chronic conditions I discussed the patient with his daughter along with strict return precautions. Daughter understood and agrees with the plan of care. . 20:18 ED course: Upon discharge, patient wandered outside the ER. Family unable to locate him [facility] initially. Family advised to bring the patient back to the ER for reevaluation. I discussed the patient with Dr. Sandoval whom will provide care upon return. 04/24 12:20 Order name: Basic Metabolic Panel; Complete Time: 16:11 [facility] 04/24 12:20 Order name: CBC with Diff; Complete Time: 15:56 [facility] 04/24 12:20 Order name: LFT's; Complete Time: 16:11 [facility] 04/24 12:20 Order name: Magnesium; Complete Time: 16:11 [facility] 04/24 12:20 Order name: NT PRO-BNP; Complete Time: 16:11 [facility] 04/24 12:20 Order name: PT-INR; Complete Time: 15:56 [facility] 04/24 12:20 Order name: Troponin HS; Complete Time: 16:11 [facility] 04/24 12:20 Order name: XRAY Chest (1 view); Complete Time: 13:31 [facility] 04/24 12:21 Order name: AMMONIA; Complete Time: 16:07 [facility] 04/24 12:21 Order name: SARS-COV-2 RT PCR (Document "Date of Onset" if Symptomatic); Complete Time: [facility] 17:32 04/24 16:12 Order name: CT Head Brain wo Cont; Complete Time: 17:48 [facility] 04/24 16:32 Order name: US Abdomen Limited; Complete Time: 19:11 [facility] 04/24 17:48 Order name: Urine Dipstick-Ancillary; Complete Time: 17:48 [facility] 04/24 12:20 Order name: EKG; Complete Time: 12:21 [facility] 04/24 12:20 Order name: Cardiac monitoring; Complete Time: 15:57 [facility] 04/24 12:20 Order name: EKG - Nurse/Tech; Complete Time: 15:57 [facility] 04/24 12:20 Order name: IV Saline Lock; Complete Time: 15:34 [facility] 04/24 12:20 Order name: Labs collected and sent; Complete Time: 15:34 [facility] 04/24 12:20 Order name: O2 Per Protocol; Complete Time: 15:34 [facility] 04/24 12:20 Order name: O2 Sat Monitoring; Complete Time: 15:57 [facility] 04/24 12:21 Order name: Urine Dipstick-Ancillary (obtain specimen); Complete Time: 19:22 [facility] Administered Medications: 16:13 Drug: Lactulose 30 grams Volume: 45 ml; Route: PO; ss 19:09 Follow up: Response: No adverse reaction [facility] 16:18 Drug: NS 0.9% 500 ml Route: IV; Rate: bolus; Site: right antecubital; ss 19:25 Drug: Rocephin (cefTRIAXone) 1 grams Route: IV; Rate: calculated rate; Site: right bh1 antecubital; 19:39 Follow up: IV Status: Completed infusion; IV Intake: 10ml [facility] Disposition: 20:12 Co-signature as Attending Physician, Donte Delatorre DO I was immediately available on-site ms3 in the Emergency Department for consultation in the care of the patient.. Disposition Summary: 04/24/22 19:20 Discharge Ordered Location: Home [facility] Condition: Stable jm Diagnosis - Hepatic Encephalopathy jmm - UTI jmm Followup: jmm - With: Private Physician - When: 1 - 2 days - Reason: Recheck today's complaints, Continuance of care, Re-evaluation by your physician Discharge Instructions: - Discharge Summary Sheet jm - Urinary Tract Infection, Adult jmm - Hepatic Encephalopathy [facility] Forms: - Medication Reconciliation Form [facility] - Thank You Letter [facility] - Antibiotic Education [facility] - Prescription Opioid Use [facility] Prescriptions: - cefpodoxime 200 mg Oral Tablet - take 1 tablet by ORAL route every 12 hours for 10 days with food; 20 tablet; [facility] Refills: 0, Product Selection Permitted Signatures: Dispatcher [employer] EDMS Tyron Smiley PA PA jmm Smirch, Shelby, RN GONZALO Ingrid Reyna RN RN [facility] Donte Delatorre DO DO ms3 Lelia Lemon RN RN [facility]
--- NOTE | 2022-04-24 19:21 | ER ---
Nurse's Notes [facility] Name: Naif Loza Age: 66 yrs Sex: Male : 1955 Arrival Date: 04/24/2022 Time: 11:52 Bed 10 Private MD: Diagnosis: Hepatic Encephalopathy;UTI Presentation: 04/24 12:18 Chief complaint: Patient states: weakness of full body, denies CP or SOB; pt spouse vg1 stated "he got up this morning and was acting weird this morning, he was trying to put his shorts on top of [employer] pants and he wasn't understanding anything I was telling him to do". Coronavirus screen: Vaccine status: Patient reports receiving the 2nd dose of the covid vaccine. Client denies travel out of the [place] in the last 14 days. Ebola Screen: Patient denies exposure to infectious person. Patient denies travel to an Ebola-affected area in the 21 days before illness onset. Initial Sepsis Screen: Does the patient meet any 2 criteria? No. Patient's initial sepsis screen is negative. Does the patient have a suspected source of infection? No. Patient's initial sepsis screen is negative. Risk Assessment: Do you want to hurt yourself or someone else? Patient reports no desire to harm self or others. Onset of symptoms was April 24, 2022 at 08:00. 12:18 Method Of Arrival: Ambulatory vg1 12:18 Acuity: VENKATESH 3 vg1 Triage Assessment: 12:23 General: Appears comfortable, Behavior is cooperative. Pain: Denies pain. Neuro: Level vg1 of Consciousness is awake, alert, confused, Oriented to person, place. Respiratory: Airway is patent Respiratory effort is even, unlabored. Historical: - Allergies: 12:23 No Known Allergies; vg1 - Home Meds: 12:23 Xifaxan oral [Active]; Spironolactone Oral [Active]; lactulose 10 gram/15 mL Oral soln vg1 15 mL twice a day [Active]; Furosemide Oral [Active]; - PMHx: 12:23 Anxiety; Cirrhosis; Hernia; vg1 - PSHx: 12:23 hernia repair; vg1 - Immunization history:: Client reports receiving the 2nd dose of the Covid vaccine. - Social history:: Smoking status: Patient denies any tobacco usage or history of. Screenin:00 Abuse screen: Denies threats or abuse. Denies injuries from another. Nutritional ss screening: No deficits noted. Tuberculosis screening: Never had TB. Fall Risk None identified. Assessment: 15:00 General: Appears in no apparent distress. comfortable, Behavior is calm, cooperative. ss Pain: Denies pain. Neuro: García Agitation-Sedation Scale (RASS): 0 - Alert and Calm Level of Consciousness is awake, alert, obeys commands, Oriented to person, place, Speech is normal. Cardiovascular: Capillary refill < 3 seconds is brisk in bilateral fingers Patient's skin is warm and dry. Respiratory: Airway is patent Respiratory effort is even, unlabored, Respiratory pattern is regular, symmetrical. EENT: Nares are clear. Derm: Skin is intact, is healthy with good turgor, Skin is dry, Skin is pink, warm \\T\\ dry. normal. Musculoskeletal: Circulation, motion, and sensation intact. Range of motion: intact in all extremities, Swelling absent. 17:00 Reassessment: Patient appears in no apparent distress at this time. Patient and/or ss family updated on plan of care and expected duration. Pain level reassessed. Awaiting for CT to be obtained. Vital Signs: 12:18 BP 119 / 69; Pulse 89; Resp 16; Temp 98.5; Pulse Ox 98% on R/A; Weight 74.84 kg; vg1 17:06 BP 117 / 70; Pulse 70; Resp 16; Pulse Ox 97% on R/A; Pain 0/10; ss 19:14 BP 124 / 75; Pulse 78; Resp 20; Pulse Ox 99% on R/A; bh1 ED Course: 11:52 Patient arrived in ED. rg4 12:20 Tyron Smiley PA is PHCP. jmm 12:20 Donte Delatorre DO is Attending Physician. jmm 12:23 Triage completed. vg1 12:23 Arm band placed on. vg1 13:04 XRAY Chest (1 view) In Process Unspecified. EDMS 14:53 Missed attempt(s): 22 gauge in right wrist. vg1 14:57 Missed attempt(s): 22 gauge in left forearm. vg1 15:39 Inserted saline lock: 20 gauge in right antecubital area, using aseptic technique. zm Blood collected. 15:40 SARS-COV-2 RT PCR (Document "Date of Onset" if Symptomatic) Sent. zm 15:40 AMMONIA Sent. zm 15:40 Basic Metabolic Panel Sent. zm 15:40 CBC with Diff Sent. zm 15:40 LFT's Sent. zm 15:40 Magnesium Sent. zm 15:40 NT PRO-BNP Sent. zm 15:40 PT-INR Sent. zm 15:40 Troponin HS Sent. zm 16:09 Joann Valdovinos, RN is Primary Nurse. ss 17:00 Patient has correct armband on for positive identification. Bed in low position. Call ss light in reach. Side rails up X2. Client placed on continuous cardiac and pulse oximetry monitoring. NIBP monitoring applied. 17:31 CT Head Brain wo Cont In Process Unspecified. EDMS 18:05 US Abdomen Limited In Process Unspecified. EDMS 19:10 Report received from previous shift. 1 19:14 No apparent distress. Awaiting disposition. [facility] 19:39 No provider procedures requiring assistance completed. IV discontinued, intact, [facility] bleeding controlled, No redness/swelling at site. Administered Medications: 16:13 Drug: Lactulose 30 grams Volume: 45 ml; Route: PO; ss 19:09 Follow up: Response: No adverse reaction [facility] 16:18 Drug: NS 0.9% 500 ml Route: IV; Rate: bolus; Site: right antecubital; ss 19:25 Drug: Rocephin (cefTRIAXone) 1 grams Route: IV; Rate: calculated rate; Site: right 1 antecubital; 19:39 Follow up: IV Status: Completed infusion; IV Intake: 10ml [facility] Medication: 17:00 VIS not applicable for this client. ss Intake: 19:39 IV: 10ml; Total: 10ml. [facility] Outcome: 19:20 Discharge ordered by . [facility] 19:39 Discharged to home ambulatory. [facility] 19:39 Condition: good 19:39 Discharge instructions given to patient, Instructed on discharge instructions, follow up and referral plans. medication usage, Demonstrated understanding of instructions, follow-up care, medications, Prescriptions given X 1. 19:40 Patient left the ED. [facility] Signatures: Dispatcher [employer] EDMS Tyron Smiley PA PA jmm Smirch, Shelby, GONZALO RN Shruthi Reyna4 Ingrid Reyna RN RN vgHannah Glaser Barbara, RN RN bh1
[2022-04-24] MEDS ORDERED: CEFTRIAXONE 1000 MG/VIAL ONE (19:37)
[2022-04-24 20:21] VITALS: TEMP 98.5
[2022-04-24 20:24] VITALS: BP 124/75; O2SAT 99
--- NOTE | 2022-04-28 14:00 | EKG ---
Test Date: 2022-04-24 Test Time: 15:46:10 Aquaculturist: KELLY MEASUREMENT RESULTS: Intervals: Rate: 79 AL: 182 QRSD: 80 QT: 366 QTc: 419 [place]: P: 51 AL: 182 QRS: 15 T: 14 INTERPRETIVE STATEMENTS: Normal sinus rhythm Normal ECG Compared to ECG 11/16/2021 15:21:12 Left ventricular hypertrophy no longer present Myocardial infarct finding no longer present Electronically Signed On 04-28-22 13:52:26 CDT by Jeramy Falcon
== END 2022-04-24 19:40 | disposition home or self-care (01) ==
LOC: ER 11:50
DX: K72.90 Hepatic failure, unspecified without coma (principal); N39.0 Urinary tract infection, site not specified; K74.60 Unspecified cirrhosis of liver; F41.9 Anxiety disorder, unspecified; Z20.822 Contact with and (suspected) exposure to COVID-19
CPT/HCPCS: 93005; 85025; 80048; 36415; 82140; 83735; 85610; 80076; 81003; 84484; 83880; 70450; 71045; 76705; U0003; J7040